=== PATIENT | male | born 1970 | race American Indian/Alaskan Native ===

== ENCOUNTER 2017-02-11 13:04 | Inpatient (IN) | payer OTHER, MEDICAID ==
[2017-02-11 13:04] VITALS: BMI 12.6
[2017-02-11] MEDS ORDERED: Sodium Chloride 0.9% 1,000 ML IV ONE (13:42)
--- NOTE | 2017-02-11 14:20 | RAD ---
PROCEDURE: CHEST RADIOGRAPH, 1 VIEW HISTORY: Fever COMPARISON: 07/12/2016. FINDINGS: LUNGS: The lungs are well inflated and clear. There are chronic changes in both lower lobes. PLEURA: No pneumothorax or pleural fluid seen. CARDIOVASCULAR: Normal. OSSEOUS STRUCTURES: No significant abnormalities. VISUALIZED UPPER ABDOMEN: Normal. OTHER FINDINGS: None. IMPRESSION: No active pulmonary disease.
[2017-02-11 14:23] LABS: BASO # 0.1 K/uL (0.0-0.2); EOS # 0.1 K/uL (0.0-0.7); EOS % 0.8 % (0.0-4.0); HEMOGLOBIN 11.4 g/dL (12.0-18.0); LYMPH # 1.5 K/uL (1.0-4.3); LYMPH % 11.8 % (20.0-40.0); MEAN CELL VOLUME 87.4 fL (80.0-94.0); MEAN PLATELET VOLUME 7.6 fL (7.2-11.7); MONO # 0.7 K/uL (0.0-0.8); MONO % 5.4 % (0.0-10.0); NEUT # 10.1 K/uL (1.8-7.0); RBC 4.09 Mil/uL (4.40-5.90); RED CELL DISTRIBUTION WIDTH 15.2 % (11.5-14.5); WHITE BLOOD COUNT 12.5 K/uL (4.8-10.8)
[2017-02-11 14:32] LABS: VENOUS BLOOD GAS BASE EXCESS 0.6 mmol/L (0.0-2.0); VENOUS BLOOD GAS PCO2 47 mmHg (40-60); VENOUS BLOOD GAS PO2 17 mm/Hg (30-55); VENOUS BLOOD PH 7.36 (7.32-7.43)
[2017-02-11 14:34] LABS: ALBUMIN 3.7 g/dL (3.5-5.0)
[2017-02-11 14:37] LABS: ALB/GLOB RATIO 0.7 (1.0-2.1)
[2017-02-11 14:38] LABS: CALCIUM 9.8 mg/dl (8.6-10.4)
[2017-02-11 15:41] LABS: URINE BACTERIA OCC (<OCC); URINE BILIRUBIN NEGATIVE (NEGATIVE); URINE BLOOD 2+ (NEGATIVE); URINE CLARITY Turbid (Clear); URINE COLOR Yellow (YELLOW); URINE GLUCOSE (UA) NORMAL (Normal); URINE LEUKOCYTE ESTERASE 3+ Leu/uL (Negative); URINE NITRATE NEGATIVE (NEGATIVE); URINE PROTEIN 1+ mg/dL (NEGATIVE); URINE UROBILINOGEN NORMAL mg/dL (0.2-1.0); WBC CLUMPS FEW /hpf
[2017-02-11] MEDS ORDERED: cefTRIAXone IV 1 gm in Dextros 50 ML IV STA (15:44)
[2017-02-11] MEDS ORDERED: Piperacillin/Tazobact 3.375 gm 100 ML IV STA (15:53)
--- NOTE | 2017-02-11 15:59 | C.PDOC ---
History Of Present Illness 46-year-old male sent to the emergency department from subacute rehab with complaints of hematuria since yesterdat, described as "maroon colored urine." He denies fever, chest pain, shortness of breath, abdominal pain, flank pain, dysuria. Time Seen by Provider: 02/11/17 13:31 Chief Complaint (Nursing): Male Genitourinary History Per: Patient History/Exam Limitations: no limitations Onset/Duration Of Symptoms: Days Current Symptoms Are (Timing): Still Present Severity: Moderate Past Medical History Reviewed: Historical Data, Nursing Documentation, Vital Signs Vital Signs: Last Vital Signs Temp 97.3 F L 02/17/17 00:00 Pulse 98 H 02/17/17 00:00 Resp 20 02/17/17 00:00 BP 115/81 02/17/17 00:00 Pulse Ox 100 02/17/17 00:00 - Medical History PMH: Diabetes, Fractures (left shoulder), HTN, Hypercholesterolemia, Seizures - [facility] Procedures EXCISION OF DUODENUM, ENDO, DIAGN (07/02/16) EXCISION OF ESOPHAGUS, ENDO, DIAGN (07/02/16) EXCISION OF STOMACH, ENDO, DIAGN (07/02/16) INSPECTION OF BLADDER, ENDO (12/12/16) INTRODUCTION OF SERUM/TOX/VACCINE INTO MUSCLE, PERC APPROACH (07/14/15) Family History: States: Diabetes - Social History Hx Alcohol Use: No Hx Substance Use: No - Immunization History Hx Influenza Vaccination: No Hx Pneumococcal Vaccination: No Review Of Systems Except As Marked, All Systems Reviewed And Found Negative. Constitutional: Negative for: Fever, Chills Cardiovascular: Negative for: Chest Pain Respiratory: Negative for: Shortness of Breath Gastrointestinal: Negative for: Nausea, Vomiting, Diarrhea Genitourinary: Positive for: Hematuria. Negative for: Dysuria Physical Exam - Physical Exam Appears: Well, Non-toxic, No Acute Distress Skin: Normal Color, Warm, Dry, No Rash Eye(s): bilateral: Normal Inspection Oral Mucosa: Moist Neck: Normal, Normal ROM Cardiovascular: Rhythm Regular Respiratory: Normal Breath Sounds, No Rales, No Rhonchi, No Wheezing Gastrointestinal/Abdominal: Normal Exam, Bowel Sounds, Soft, No Tenderness Back: Normal Inspection, No CVA Tenderness Neurological/Psych: Oriented x3 ED Course And Treatment - Laboratory Results Result Diagrams: 02/15/17 07:31 02/15/17 07:31 O2 Sat by Pulse Oximetry: 98 (RA) Pulse Ox Interpretation: Normal Progress Note: Blood work, UA, ordered and reviewed. Patient has fever, PO tylenol given. IV Zosyn given for UTI/pyelonephritis. Patient refused bardales catheter insertion. - Physician Consult Information Physician Contacted: Jerad Orellana Outcome Of Conversation: Discussed patient with Dr. Orellana. States an outpatient US shows B/L hydronephrosis without evidence of kidney stone. Prior CT scan abd/pelvis done 12/2016 also shows thickened bladder wall + hydro without evidence of kidney stone. Dr. Orellana requests insertion of bardales (due to worsening renal function, possible obstruction) and [facility] urology consult. Disposition - Disposition Disposition: HOSPITALIZED Disposition Time: 15:12 Condition: STABLE - Clinical Impression Clinical Impression: Pyelonephritis, Acute renal failure (ARF), Leukocytosis, Fever - PA / ROCK BREAKER / Resident Statement MD/DO has reviewed & agrees with the documentation as recorded. - Scribe Statement The provider has reviewed the documentation as recorded by the Scribe (Jey Wright) All medical record entries made by the Scribe were at my direction and personally dictated by me. I have reviewed the chart and agree that the record accurately reflects my personal performance of the history, physical exam, medical decision making, and the department course for this patient. I have also personally directed, reviewed, and agree with the discharge instructions and disposition. Decision To Admit - Pt Status Changed To: Hospital Disposition Of: Inpatient - Admit Certification Admit to Inpatient:: After my assessment, the patient will require hospitalization for at least two midnights. This is because of the severity of symptoms shown, intensity of services needed, and/or the medical risk in this patient being treated as an outpatient. - InPatient: Physician Admission Certification: I certify that this patient requires 2 or more midnights of care for the following reason:: see notes - . Bed Request Type: Regular Admitting Physician: Jerad Orellana Patient Diagnosis: Pyelonephritis, Acute renal failure (ARF), Leukocytosis, Fever
[2017-02-11] MEDS ORDERED: Piperacillin/Tazobact 3.375 gm 100 ML IVPB ONE (16:07)
[2017-02-11] MEDS ORDERED: Sodium Chloride 0.9% 1,000 ML ONE ×2 (16:36→19:00)
[2017-02-11] MEDS ORDERED: Piperacillin/Tazobact 3.375 GM in Sodium Chloride 100 ML IVPB SCH (18:15)
[2017-02-11] MEDS: Sodium Chloride 0.9% 1,000 ML IV SCH (18:54)
[2017-02-11] MEDS ORDERED: Insulin Detemir 100 units/ml Vial (Levemir) SC ONE (21:50)
[2017-02-11] MEDS: Insulin Detemir 100 units/ml Vial (Levemir) SC SCH (21:57)
[2017-02-11] MEDS: Sucralfate 1 gm/10 ml Oral Susp UD PO SCH (22:28)
--- NOTE | 2017-02-11 23:45 | CP.PCM.HP ---
History of Present Illness - History of Present Illness History of Present Illness: 46-year-old male, presents to the emergency department with complaints of hematuiria, described as "maroon urine." Patient sent from rehab. Denies fever today, chest pain, shortness of breath, abdominal pain, flank pain, dysuria, or any other associated symptoms. No other complaints at this time.Pt has b/l hydronephrosis without kidney stones, urology consulted Present on Admission - Present on Admission Any Indicators Present on Admission: Yes Review of Systems - Review of Systems Systems not reviewed;Unavailable: Acuity of Condition - Constitutional Constitutional: Fatigue, Lethargy. absent: As Per HPI, Anorexia, Chills, Daytime Sleepiness, Excessive Sweating, Fever, Frequent Falls, Headache, Increased Appetite, Malaise, Night Sweats, Snoring, Sleep Apnea, Weight Gain, Weight Loss, Weakness, Other - EENT Eyes: absent: As Per HPI, Blind Spots, Blurred Vision, Change in Vision, Decreased Night Vision, Diplopia, Discharge, Dry Eye, Exophthalmos, Floaters, Irritation, Itchy Eyes, Loss of Peripheral Vision, Pain, Photophobia, Requires Corrective Lenses, Sees Flashes, Spots in Vision, Tunnel Vision, Other Visual Disturbances, Loss of Vision, Other Ears: Decreased Hearing Nose/Mouth/Throat: absent: As Per HPI, Epistaxis, Nasal Congestion, Nasal Discharge, Nasal Obstruction, Nasal Trauma, Nose Pain, Post Nasal Drip, Sinus Pain, Sinus Pressure, Bleeding Gums, Change in Voice, Dental Pain, Dry Mouth, Dysphagia, Halitosis, Hoarsness, Lip Swelling, Mouth Lesions, Mouth Pain, Odynophagia, Sore Throat, Throat Swelling, Tongue Swelling, Facial Pain, Neck Pain, Neck Mass, Other - Cardiovascular Cardiovascular: absent: As Per HPI, Acrocyanosis, Chest Pain, Chest Pain at Rest , Chest Pain with Activity, Claudication, Diaphoresis, Dyspnea, Dyspnea on Exertion, Edema, Irregular Heart Rhythm, Pain Radiating to Arm/Neck/Jaw, Leg Edema, Leg Ulcers, Lightheadedness, Orthopnea, Palpitations, Paroxysmal Nocturnal Dyspnea, Pedal Edema, Radiating Pain, Rapid Heart Rate, Slow Heart Rate, Syncope, Other - Gastrointestinal Gastrointestinal: absent: As Per HPI, Abdominal Pain, Belching, Bloating, Change in Bowel Habits, Change in Stool Character, Coffee Ground Emesis, Constipation, Cramping, Diarrhea, Dyspepsia, Dysphagia, Early Satiety, Excessive Flatus, Fecal Incontinence, Heartburn, Hematemesis, Hematochezia, Loose Stools, Melena, Nausea, Odynophagia, Temesmus, Vomiting, Other - Genitourinary Genitourinary: Change in Urinary Stream, Difficulty Urinating, Flank Pain, Hematuria, Nocturia, Voiding Freq/Small Amts Past Patient History - Infectious Disease Hx of Infectious Diseases: None - Past Medical History & Family History Past Medical History?: Yes - Past Social History Smoking Status: Never Smoked - CARDIAC Hx Hypercholesterolemia: Yes Hx Hypertension: Yes - PULMONARY Hx Respiratory Disorders: No - NEUROLOGICAL Hx Seizures: Yes - HEENT Hx HEENT Problems: No - RENAL Hx Chronic Kidney Disease: No - ENDOCRINE/METABOLIC Hx Diabetes Mellitus Type 1: Yes - HEMATOLOGICAL/ONCOLOGICAL Hx Human Immunodeficiency Virus (HIV): No - INTEGUMENTARY Hx Dermatological Problems: No - MUSCULOSKELETAL/RHEUMATOLOGICAL Hx Fractures: Yes (left shoulder) - GASTROINTESTINAL Hx Clostridium Difficile: Yes Hx Diarrhea: Yes - GENITOURINARY/GYNECOLOGICAL Hx Genitourinary Disorders: No - PSYCHIATRIC Hx Substance Use: No - SURGICAL HISTORY Hx Surgeries: No - ANESTHESIA Hx Anesthesia: No Meds Allergies/Adverse Reactions: Allergies Allergy/AdvReac Type Severity Reaction Status Date / Time No Known Allergies Allergy Verified 01/16/17 18:01 Physical Exam - Constitutional Appears: No Acute Distress - Head Exam Head Exam: ATRAUMATIC, NORMAL INSPECTION, NORMOCEPHALIC - Eye Exam Eye Exam: EOMI, Normal appearance, PERRL Pupil Exam: NORMAL ACCOMODATION, PERRL - Respiratory Exam Respiratory Exam: Clear to Auscultation Bilateral, NORMAL BREATHING PATTERN - Cardiovascular Exam Cardiovascular Exam: REGULAR RHYTHM - GI/Abdominal Exam GI & Abdominal Exam: Normal Bowel Sounds, Soft. absent: Tenderness Results - Vital Signs Recent Vital Signs: Last Vital Signs Temp 97.5 F L 02/11/17 22:51 Pulse 104 H 02/11/17 22:51 Resp 20 02/11/17 22:51 BP 118/80 02/11/17 22:51 Pulse Ox 96 02/11/17 22:51 - Labs Result Diagrams: 02/12/17 11:41 02/12/17 11:41 Labs: Laboratory Results - last 24 hr 02/11/17 21:37 POC Glucose (mg/dL) 370 H Assessment & Plan (1) Hydronephrosis determined by ultrasound Status: Acute (2) Dehydration Status: Acute (3) Diabetes Status: Chronic (4) Pyelonephritis Status: Acute (5) Obstructive uropathy Assessment and Plan: pt refuses foleys Status: Acute
[2017-02-12] MEDS: Sodium Chloride 0.9% 1,000 ML IV SCH ×3 (01:25→16:38)
[2017-02-12] MEDS: Piperacillin/Tazobact 3.375 GM in Sodium Chloride 100 ML IVPB SCH ×3 (01:25→17:09)
--- NOTE | 2017-02-12 08:16 | PCM.URO ---
Urology Progress Note - Objective Lab Results Last 24 Hours: Laboratory Results - last 24 hr 02/11/17 02/12/17 21:37 06:20 POC Glucose (mg/dL) 370 H 90 Intake & Output: Intake & Output 02/11/17 02/12/17 02/12/17 18:59 06:59 18:59 Intake Total 100 100 Output Total 400 Balance -300 100 Intake: Intake, IV Amount 100 Right Forearm 100 Oral 100 Output: Urine 400 Vital Signs: Vital Signs - 24 hr 02/11/17 02/11/17 02/11/17 16:33 16:47 20:02 Temperature 99.6 F 97.6 F Pulse Rate 110 H 99 H Respiratory 16 16 Rate Blood Pressure 121/86 113/74 O2 Sat by Pulse 100 98 99 Oximetry 02/11/17 02/11/17 02/12/17 22:51 23:10 08:05 Temperature 97.5 F L 98.0 F 98.2 F Pulse Rate 104 H 122 H 92 H Respiratory 20 20 20 Rate Blood Pressure 118/80 133/83 131/89 O2 Sat by Pulse 96 98 100 Oximetry
[2017-02-12] MEDS ORDERED: INSULIN LISPRO PROTAMINE SQ SCH (10:00)
[2017-02-12] MEDS ORDERED: INSULIN LISPRO SQ SCH (10:00)
[2017-02-12] MEDS: (Novolog Mix 70/30) Insulin Aspart/Insulin Aspar 100 units/ml SC SCH ×2 (10:51→17:59)
[2017-02-12] MEDS: Sucralfate 1 gm/10 ml Oral Susp UD PO SCH ×4 (10:51→22:16)
[2017-02-12] MEDS: Enoxaparin 30 mg Syringe SC SCH (10:51)
[2017-02-12 11:44] LABS: BASO # 0.1 K/uL (0.0-0.2); BASO % 0.8 % (0.0-2.0); EOS # 0.2 K/uL (0.0-0.7); EOS % 1.8 % (0.0-4.0); HEMOGLOBIN 10.3 g/dL (12.0-18.0); LYMPH # 1.2 K/uL (1.0-4.3); LYMPH % 11.9 % (20.0-40.0); MEAN CELL VOLUME 87.4 fL (80.0-94.0); MEAN CORPUSCULAR HEMOGLOBIN 28.2 pg (27.0-31.0); MEAN CORPUSCULAR HGB CONC 32.3 g/dL (33.0-37.0); MEAN PLATELET VOLUME 7.5 fL (7.2-11.7); MONO # 0.5 K/uL (0.0-0.8); MONO % 5.4 % (0.0-10.0); NEUT # 8.1 K/uL (1.8-7.0); NEUT % 80.1 % (50.0-75.0); RBC 3.66 Mil/uL (4.40-5.90); RED CELL DISTRIBUTION WIDTH 14.8 % (11.5-14.5); WHITE BLOOD COUNT 10.2 K/uL (4.8-10.8)
[2017-02-12 11:55] LABS: GFR AFRICAN-AMERICAN > 60; GFR NON-AFRICAN AMERICAN 51
[2017-02-12 11:56] LABS: BLOOD UREA NITROGEN 23 mg/dL (9-20); CALCIUM 9.5 mg/dl (8.6-10.4)
--- NOTE | 2017-02-12 16:13 | CT ---
PROCEDURE: CT abdomen pelvis dated 02/12/2017 HISTORY: stones COMPARISON: Comparison made with CT scan abdomen and pelvis dated 07/04/2016. TECHNIQUE: Contiguous axial images of the abdomen and pelvis pelvis without oral or intravenous contrast. . Coronal and Sagittal reformats generated. Radiation dose: Total exam DLP = 253.77 mGy-cm. This CT exam was performed using one or more of the following dose reduction techniques: Automated exposure control, adjustment of the mA and/or kV according to patient size, and/or use of iterative reconstruction technique. FINDINGS: LOWER THORAX: Previously noted large area of atelectasis/ consolidation left lung base resolved however there are scattered areas of somewhat in tree-in-bud opacities in both lung bases associated with linear atelectasis/ scarring. LIVER: Liver exhibits normal size and attenuation pattern without mass collection or calcification. GALLBLADDER AND BILE DUCTS: Gallbladder appears to be incompletely distended likely due to nonfasting state and therefore cannot be adequately evaluated no gross intraluminal gallbladder calculi PANCREAS: Evaluation of the pancreas is somewhat limited due to the lack of oral and intravenous contrast material. No gross pancreatic mass collection or calcification. No significant pancreatic ductal dilatation. SPLEEN: Unremarkable. No splenomegaly. ADRENALS: Mildly enlarged left adrenal gland. KIDNEYS AND URETERS: There is moderate bilateral hydronephrosis with no evidence of nephrolithiasis. BLADDER: Urinary bladder is distended though exhibits moderate to fairly significant thick-walled appearance somewhat asymmetrically more prominent along the inferior borders. Findings could be secondary to exuberant muscular hypertrophy secondary to a chronic bladder outlet obstruction secondary to enlarged prostate gland however cystitis or other intrinsic/ invasive wall lesion cannot be excluded. REPRODUCTIVE: As mentioned above, the prostate gland is enlarged measuring approximately 5 cm in transverse dimension. This is likely due to BPH however correlation with PSA recommended to exclude prostate carcinoma. APPENDIX: Appendix is not seen with certainty however no obvious inflammatory changes right lower quadrant of the abdomen. BOWEL: In the evaluation of the bowel is limited due to the lack of oral contrast material. There appears be tiny hiatal hernia. Stomach is distended with food debris and air. Visualized loops of small bowel exhibit normal contour and caliber. No evidence of acute mechanical small bowel obstruction. . PERITONEUM: Unremarkable. No fluid collection. No free air. Small fat containing umbilical hernia. LYMPH NODES: Unremarkable. No enlarged lymph nodes. VASCULATURE: Unremarkable. No aortic aneurysm. BONES: No acute fractures. Minimal chronic anterior stature loss of the T12 segment unchanged. OTHER FINDINGS: None. IMPRESSION: Moderate bilateral hydronephrosis of likely due to on chronic bladder outlet obstruction secondary to enlarged prostate gland. The urinary bladder wall is relatively uniformly thickened with the exception along the floor of though this is likely due to some volume averaging of the prostate gland. On findings likely secondary to muscular hypertrophy however cystitis or other intrinsic/invasive wall lesion not excluded. Enlarged prostate gland which is somewhat heterogeneous in appearance. This is likely due to BPH however correlation with PSA recommended. See above discussion for additional findings and details.
--- NOTE | 2017-02-12 21:49 | CP.PCM.PN ---
Subjective - Date & Time of Evaluation Date of Evaluation: 02/12/17 Time of Evaluation: 22:00 - Subjective Subjective: Pt seen and examined, refuses foleys insertion, also seen by urology, s/p avute pyelonepritis and obstructive uropathy due to b/l hydronephrosis, on antibiotics Objective - Vital Signs/Intake and Output Vital Signs (last 24 hours): Temp Pulse Resp BP Pulse Ox 99.8 F H 90 20 158/99 H 100 02/12/17 16:01 02/12/17 16:01 02/12/17 16:01 02/12/17 16:01 02/12/17 16:01 Intake and Output: 02/12/17 02/13/17 18:59 06:59 Intake Total 340 Output Total 1250 Balance -910 - Medications Medications: Current Medications Acetaminophen (Tylenol 325mg Tab) 650 mg PO Q6 PRN PRN Reason: Fever >100.4 F Bisacodyl (Dulcolax) 10 mg [place] DAILY PRN PRN Reason: Constipation Enoxaparin Sodium (Lovenox) 30 mg SC DAILY [facility] Last Admin: 02/12/17 10:51 Dose: 30 mg Ferrous Sulfate (Feosol) 325 mg PO DAILY [facility] Last Admin: 02/12/17 10:51 Dose: 325 mg Fluconazole (Diflucan) 100 mg PO DAILY [facility] Last Admin: 02/12/17 10:51 Dose: 100 mg Sodium Chloride (Sodium Chloride 0.9%) 1,000 mls @ 100 mls/hr IV .Q10H [facility] Last Admin: 02/12/17 16:38 Dose: 100 mls/hr Piperacillin Sod/Tazobactam (Sod 3.375 gm/ Sodium Chloride) 100 mls @ 200 mls/ hr IVPB Q8H [facility] Last Admin: 02/12/17 17:09 Dose: 200 mls/hr Insulin Aspart (Novolog Mix 70/30 (70/30 Units/Ml)) 20 units SC BID [facility] Last Admin: 02/12/17 17:59 Dose: 20 units Insulin Detemir (Levemir) 30 unit SC HS [facility] Last Admin: 02/11/17 21:57 Dose: 30 unit Loperamide HCl (Imodium) 2 mg PO Q6 [facility] Last Admin: 02/12/17 17:57 Dose: 2 mg Midodrine (Proamatine) 2.5 mg PO BID [facility] Last Admin: 02/12/17 17:57 Dose: 2.5 mg Rosuvastatin Calcium (Crestor) 5 mg PO HS [facility] Last Admin: 02/11/17 22:28 Dose: 5 mg Sucralfate (Carafate Oral Susp) 1 gm PO QID [facility] Last Admin: 02/12/17 17:57 Dose: 1 gm - Labs Labs: 02/12/17 11:41 02/12/17 11:41 - Constitutional Appears: No Acute Distress - Head Exam Head Exam: ATRAUMATIC, NORMAL INSPECTION, NORMOCEPHALIC - Eye Exam Eye Exam: EOMI, Normal appearance, PERRL Pupil Exam: NORMAL ACCOMODATION, PERRL - ENT Exam ENT Exam: Mucous Membranes Moist, Normal Exam - Respiratory Exam Respiratory Exam: Clear to Ausculation Bilateral, NORMAL BREATHING PATTERN - Cardiovascular Exam Cardiovascular Exam: REGULAR RHYTHM, +S1, +S2. absent: Murmur - GI/Abdominal Exam GI & Abdominal Exam: Soft, Normal Bowel Sounds. absent: Tenderness - Neurological Exam Neurological Exam: Alert, Awake, CN II-XII Intact, Normal Gait, Oriented x3 Assessment and Plan (1) Hydronephrosis determined by ultrasound Status: Acute (2) Obstructive uropathy Status: Acute (3) Pyelonephritis Status: Acute (4) Dehydration Status: Acute (5) Diabetes Status: Chronic
[2017-02-12] MEDS: Insulin Detemir 100 units/ml Vial (Levemir) SC SCH (22:25)
[2017-02-13] MEDS: Sodium Chloride 0.9% 1,000 ML IV SCH ×4 (00:48→19:24)
[2017-02-13] MEDS: Piperacillin/Tazobact 3.375 GM in Sodium Chloride 100 ML IVPB SCH ×3 (01:05→16:44)
[2017-02-13] MEDS: (Novolog Mix 70/30) Insulin Aspart/Insulin Aspar 100 units/ml SC SCH ×2 (09:41→18:58)
[2017-02-13] MEDS: Sucralfate 1 gm/10 ml Oral Susp UD PO SCH ×4 (09:41→22:32)
[2017-02-13] MEDS: Enoxaparin 30 mg Syringe SC SCH (09:41)
--- NOTE | 2017-02-13 13:06 | PCM.URO ---
Urology Progress Note - General General: No Complaints, Tolerating Diet - Subjective Abdominal Pain: No Flank Pain: No Nausea: No Vomiting: No Dysuria: No Hematuria: No Good Stream: No (fair stream) Stone Passed: No Dsypnea: No Chest Pain: No Fever & Chills: No Other: pt reports feeling better overall. hx of retention - Objective Lab Studies: Reviewed Lab Results Last 24 Hours: Laboratory Results - last 24 hr 02/12/17 02/12/17 02/13/17 16:59 21:22 06:18 POC Glucose (mg/dL) 146 H 151 H 370 H 02/13/17 11:44 POC Glucose (mg/dL) 162 H Intake & Output: Intake & Output 02/12/17 02/13/17 02/13/17 18:59 06:59 18:59 Intake Total 340 240 Output Total 1250 850 Balance -910 -610 Intake: Intake, IV Amount 100 Right Forearm 100 Oral 240 240 Output: Urine 1250 850 Condom 1250 850 Other: # Bowel Movements 1 Vital Signs: Vital Signs - 24 hr 02/12/17 02/12/17 02/12/17 16:01 22:00 23:32 Temperature 99.8 F H 98.2 F Pulse Rate 90 105 H 94 H Respiratory 20 20 Rate Blood Pressure 158/99 H 131/89 121/84 O2 Sat by Pulse 100 100 Oximetry 02/13/17 08:16 Temperature 98.0 F Pulse Rate 94 H Respiratory 20 Rate Blood Pressure 121/84 O2 Sat by Pulse 100 Oximetry Imaging Studies: Reviewed - Physical Exam Abdominal Exam: Soft, Non-Tender, Non-Distended Back: No CVA Tenderness Genitalia: Without Inflammation - Plan Additional Information: IMP: Urinary retention . DDX: obstruction and /or detrusor hypofunction. Bilat hydronephrosis. IDDM. REC/PLAN: monitor output. monitor renalfunction. psa. culture. Poss cystometrogram, cystoscopy , cystogram t/f. bladder scan to check residual - Date & Time of Note Date: 02/13/17 Time: 13:06
[2017-02-13] MEDS: Insulin Detemir 100 units/ml Vial (Levemir) SC SCH (21:47)
[2017-02-13] MEDS: (Novolog) Insulin Aspart, Recombinant 100 u/ml 10 ml vial SC SCH (21:48)
--- NOTE | 2017-02-13 22:40 | CP.PCM.PN ---
Subjective - Date & Time of Evaluation Date of Evaluation: 02/13/17 Time of Evaluation: 20:15 - Subjective Subjective: Pt is for cystoscopy tommorow, is weak and lethargic Objective - Vital Signs/Intake and Output Vital Signs (last 24 hours): Temp Pulse Resp BP Pulse Ox 98.0 F 94 H 20 149/105 H 100 02/13/17 17:33 02/13/17 17:33 02/13/17 17:33 02/13/17 17:33 02/13/17 17:33 Intake and Output: 02/13/17 02/14/17 18:59 06:59 Intake Total 1280 Output Total 900 600 Balance 380 -600 - Medications Medications: Current Medications Acetaminophen (Tylenol 325mg Tab) 650 mg PO Q6 PRN PRN Reason: Fever >100.4 F Bisacodyl (Dulcolax) 10 mg [place] DAILY PRN PRN Reason: Constipation Enoxaparin Sodium (Lovenox) 30 mg SC DAILY [facility] Last Admin: 02/13/17 09:41 Dose: 30 mg Ferrous Sulfate (Feosol) 325 mg PO DAILY [facility] Last Admin: 02/13/17 09:41 Dose: 325 mg Fluconazole (Diflucan) 100 mg PO DAILY [facility] Last Admin: 02/13/17 09:41 Dose: 100 mg Sodium Chloride (Sodium Chloride 0.9%) 1,000 mls @ 100 mls/hr IV .Q10H [facility] Last Admin: 02/13/17 19:24 Dose: Not Given Piperacillin Sod/Tazobactam (Sod 3.375 gm/ Sodium Chloride) 100 mls @ 200 mls/ hr IVPB Q8H [facility] Last Admin: 02/13/17 16:44 Dose: 200 mls/hr Insulin Aspart (Novolog Mix 70/30 (70/30 Units/Ml)) 20 units SC BID [facility] Last Admin: 02/13/17 18:58 Dose: 20 units Insulin Aspart (Novolog) 0 unit SC ACHS [facility] PRN Reason: Protocol Last Admin: 02/13/17 21:48 Dose: 3 unit Insulin Detemir (Levemir) 30 unit SC HS [facility] Last Admin: 02/13/17 21:47 Dose: 30 unit Loperamide HCl (Imodium) 2 mg PO Q6 PRN PRN Reason: Diarrhea Last Admin: 02/13/17 18:59 Dose: 2 mg Midodrine (Proamatine) 2.5 mg PO BID [facility] Last Admin: 02/13/17 19:01 Dose: Not Given Rosuvastatin Calcium (Crestor) 5 mg PO HS [facility] Last Admin: 02/13/17 22:32 Dose: 5 mg Sucralfate (Carafate Oral Susp) 1 gm PO QID [facility] Last Admin: 02/13/17 22:32 Dose: 1 gm - Labs Labs: 02/12/17 11:41 02/12/17 11:41 - Constitutional Appears: No Acute Distress - Head Exam Head Exam: ATRAUMATIC, NORMAL INSPECTION, NORMOCEPHALIC - Eye Exam Eye Exam: EOMI, Normal appearance, PERRL Pupil Exam: NORMAL ACCOMODATION, PERRL - Respiratory Exam Respiratory Exam: Clear to Ausculation Bilateral, NORMAL BREATHING PATTERN - Cardiovascular Exam Cardiovascular Exam: REGULAR RHYTHM, +S1, +S2. absent: Murmur - GI/Abdominal Exam GI & Abdominal Exam: Soft, Normal Bowel Sounds. absent: Tenderness - Neurological Exam Neurological Exam: Alert, Awake, Oriented x3 - Psychiatric Exam Psychiatric exam: Normal Affect, Normal Mood Assessment and Plan (1) Hydronephrosis determined by ultrasound Status: Acute (2) Obstructive uropathy Status: Acute (3) Pyelonephritis Status: Acute (4) Dehydration Status: Acute (5) Diabetes Status: Chronic
[2017-02-14] MEDS: Piperacillin/Tazobact 3.375 GM in Sodium Chloride 100 ML IVPB SCH ×3 (00:22→15:44)
[2017-02-14] MEDS: Sodium Chloride 0.9% 1,000 ML IV SCH ×2 (03:54→13:41)
[2017-02-14 04:46] LABS: URINE BACTERIA MOD (<OCC); URINE BILIRUBIN NEGATIVE (NEGATIVE); URINE BLOOD 1+ (NEGATIVE); URINE CLARITY Turbid (Clear); URINE COLOR Amber (YELLOW); URINE GLUCOSE (UA) NORMAL (Normal); URINE LEUKOCYTE ESTERASE 3+ Leu/uL (Negative); URINE NITRATE NEGATIVE (NEGATIVE); URINE PROTEIN 1+ mg/dL (NEGATIVE); URINE UROBILINOGEN NORMAL mg/dL (0.2-1.0); WBC CLUMPS MANY /hpf
[2017-02-14] MEDS: (Novolog) Insulin Aspart, Recombinant 100 u/ml 10 ml vial SC SCH ×4 (08:33→21:47)
[2017-02-14] MEDS: Sucralfate 1 gm/10 ml Oral Susp UD PO SCH ×4 (09:25→21:46)
[2017-02-14] MEDS: (Novolog Mix 70/30) Insulin Aspart/Insulin Aspar 100 units/ml SC SCH ×2 (09:25→17:35)
[2017-02-14] MEDS: Enoxaparin 30 mg Syringe SC SCH (09:25)
--- NOTE | 2017-02-14 13:56 | CP.PCM.PN ---
Subjective - Date & Time of Evaluation Date of Evaluation: 02/14/17 Time of Evaluation: 09:00 - Subjective Subjective: PT SEEN & EXAMINED NAD Objective - Vital Signs/Intake and Output Vital Signs (last 24 hours): Temp Pulse Resp BP Pulse Ox 97.8 F 97 H 20 120/83 100 02/14/17 08:27 02/14/17 08:27 02/14/17 08:27 02/14/17 08:27 02/14/17 08:27 Intake and Output: 02/14/17 02/14/17 06:59 18:59 Intake Total 2320 Output Total 1450 Balance 870 - Medications Medications: Current Medications Acetaminophen (Tylenol 325mg Tab) 650 mg PO Q6 PRN PRN Reason: Fever >100.4 F Bisacodyl (Dulcolax) 10 mg [place] DAILY PRN PRN Reason: Constipation Enoxaparin Sodium (Lovenox) 30 mg SC DAILY [facility] Last Admin: 02/14/17 09:25 Dose: 30 mg Ferrous Sulfate (Feosol) 325 mg PO DAILY [facility] Last Admin: 02/14/17 09:25 Dose: 325 mg Fluconazole (Diflucan) 100 mg PO DAILY [facility] Last Admin: 02/14/17 09:25 Dose: 100 mg Sodium Chloride (Sodium Chloride 0.9%) 1,000 mls @ 100 mls/hr IV .Q10H [facility] Last Admin: 02/14/17 13:41 Dose: 100 mls/hr Piperacillin Sod/Tazobactam (Sod 3.375 gm/ Sodium Chloride) 100 mls @ 200 mls/ hr IVPB Q8H [facility] Last Admin: 02/14/17 08:52 Dose: 200 mls/hr Insulin Aspart (Novolog Mix 70/30 (70/30 Units/Ml)) 20 units SC BID [facility] Last Admin: 02/14/17 09:25 Dose: 20 units Insulin Aspart (Novolog) 0 unit SC ACHS [facility] PRN Reason: Protocol Last Admin: 02/14/17 13:38 Dose: 2 unit Insulin Detemir (Levemir) 30 unit SC HS [facility] Last Admin: 02/13/17 21:47 Dose: 30 unit Loperamide HCl (Imodium) 2 mg PO Q6 PRN PRN Reason: Diarrhea Last Admin: 02/13/17 18:59 Dose: 2 mg Midodrine (Proamatine) 2.5 mg PO BID [facility] Last Admin: 02/14/17 09:25 Dose: 2.5 mg Rosuvastatin Calcium (Crestor) 5 mg PO HS [facility] Last Admin: 02/13/17 22:32 Dose: 5 mg Sucralfate (Carafate Oral Susp) 1 gm PO QID [facility] Last Admin: 02/14/17 13:38 Dose: 1 gm - Labs Labs: 02/12/17 11:41 02/12/17 11:41 Assessment and Plan (1) Hydronephrosis determined by ultrasound Status: Acute (2) Obstructive uropathy Status: Acute (3) Pyelonephritis Status: Acute (4) Dehydration Status: Acute (5) Diabetes Status: Chronic
--- NOTE | 2017-02-14 14:12 | PCM.URO ---
Urology Progress Note - Objective Lab Results Last 24 Hours: Laboratory Results - last 24 hr 02/13/17 02/13/17 02/14/17 17:03 21:18 02:09 POC Glucose (mg/dL) 322 H 375 H 234 H Urine Color Urine Clarity Urine pH Ur Specific [place] Urine Protein Urine Glucose (UA) Urine Ketones Urine Blood Urine Nitrate Urine Bilirubin Urine Urobilinogen Ur Leukocyte Esterase Urine WBC (Auto) Urine RBC (Auto) Urine WBC Clumps (Auto) Urine Bacteria Urine Yeast (Budding) 02/14/17 02/14/17 02/14/17 04:34 06:47 11:31 POC Glucose (mg/dL) 122 H 156 H Urine Color Shantal Urine Clarity Turbid Urine pH 5.0 Ur Specific [place] 1.009 Urine Protein 1+ H Urine Glucose (UA) Normal Urine Ketones Negative Urine Blood 1+ H Urine Nitrate Negative Urine Bilirubin Negative Urine Urobilinogen Normal Ur Leukocyte Esterase 3+ H Urine WBC (Auto) 3274 H Urine RBC (Auto) 41 H Urine WBC Clumps (Auto) Many H Urine Bacteria Mod H Urine Yeast (Budding) Many H Intake & Output: Intake & Output 02/13/17 02/14/17 02/14/17 18:59 06:59 18:59 Intake Total 1280 2320 Output Total 2900 1450 Balance -1620 870 Intake: Intake, IV Amount 800 1600 Right Forearm 800 1600 Oral 480 720 Output: Urine 2900 1450 Condom 2900 1450 Other: # Bowel Movements 0 0 Vital Signs: Vital Signs - 24 hr 02/13/17 02/13/17 02/14/17 17:33 23:05 08:27 Temperature 98.0 F 98.4 F 97.8 F Pulse Rate 94 H 97 H 97 H Respiratory 20 20 20 Rate Blood Pressure 149/105 H 121/84 120/83 O2 Sat by Pulse 100 100 100 Oximetry
--- NOTE | 2017-02-14 17:10 | US ---
PROCEDURE: Ultrasound of the Kidneys HISTORY: hydronephrosis on ct COMPARISON: CT abdomen and pelvis without oral or IV contrast performed 02/12/17 TECHNIQUE: Sonogram of the kidneys. FINDINGS: RIGHT KIDNEY: Measures: 12.0 x 6.1 x 5.8 cm. Moderate hydronephrosis. No obstructing renal calculus identified. LEFT KIDNEY: Measures: 10.2 x 5.6 x 5.6 cm. Moderate hydronephrosis. No obstructing renal calculus identified. OTHER FINDINGS: 1.1 x 0.3 x 1.1 cm probable calculus at the right UV junction. Layering debris is noted within the urinary bladder. Roth catheter within the urinary bladder. Urinary bladder cannot be further assessed on these limited provided views. IMPRESSION: Moderate bilateral hydronephrosis. 1.1 cm probable calculus at the right UV junction. Layering debris within the urinary bladder. Roth catheter.
[2017-02-14] MEDS: Insulin Detemir 100 units/ml Vial (Levemir) SC SCH (21:48)
[2017-02-15] MEDS: Piperacillin/Tazobact 3.375 GM in Sodium Chloride 100 ML IVPB SCH ×3 (00:12→17:16)
[2017-02-15 07:37] LABS: HEMOGLOBIN 10.6 g/dL (12.0-18.0); MEAN CORPUSCULAR HEMOGLOBIN 28.1 pg (27.0-31.0); MEAN CORPUSCULAR HGB CONC 32.3 g/dL (33.0-37.0); MEAN PLATELET VOLUME 7.5 fL (7.2-11.7); RBC 3.76 Mil/uL (4.40-5.90); RED CELL DISTRIBUTION WIDTH 14.5 % (11.5-14.5); WHITE BLOOD COUNT 6.6 K/uL (4.8-10.8)
[2017-02-15 08:15] LABS: ALBUMIN 3.2 g/dL (3.5-5.0)
[2017-02-15 08:18] LABS: ALB/GLOB RATIO 0.7 (1.0-2.1)
[2017-02-15 08:19] LABS: CALCIUM 9.5 mg/dl (8.6-10.4)
[2017-02-15] MEDS: (Novolog) Insulin Aspart, Recombinant 100 u/ml 10 ml vial SC SCH ×4 (08:36→21:59)
[2017-02-15] MEDS: Sucralfate 1 gm/10 ml Oral Susp UD PO SCH ×4 (10:56→21:56)
[2017-02-15] MEDS: (Novolog Mix 70/30) Insulin Aspart/Insulin Aspar 100 units/ml SC SCH ×2 (10:56→17:10)
[2017-02-15] MEDS: Enoxaparin 30 mg Syringe SC SCH (10:57)
--- NOTE | 2017-02-15 13:07 | US ---
PROCEDURE: Ultrasound of the Kidneys HISTORY: hydronephosis COMPARISON: None available. TECHNIQUE: Sonogram of the kidneys. FINDINGS: RIGHT KIDNEY: Measures: 11.9 cm. Normal in size, contour and echogenicity. Mild hydronephrosis. No mass or calculus. LEFT KIDNEY: Measures: 10.3 cm. Normal in size, contour and echogenicity. Minimal hydronephrosis. No mass or calculus. OTHER FINDINGS: Urinary bladder significant for soft tissue density at bladder base, nonmobile. Possible neoplasm. No blood flow demonstrated within this soft tissue density on color Doppler interrogation. Further evaluation advised. There is floating debris within the bladder lumen. The bladder volume is 258 mL. Postvoid volume is 97 mL. Prostate volume is 24 mL IMPRESSION: Mild right and minimal left hydronephrosis. Soft tissue density at bladder base. Possible neoplasm. Further evaluation advised. 97 mL postvoid residual.
[2017-02-15] MEDS: Insulin Detemir 100 units/ml Vial (Levemir) SC SCH (21:57)
[2017-02-16] MEDS: Piperacillin/Tazobact 3.375 GM in Sodium Chloride 100 ML IVPB SCH ×3 (00:52→16:00)
--- NOTE | 2017-02-16 06:51 | CP.PCM.PN ---
Subjective - Date & Time of Evaluation Date of Evaluation: 02/15/17 Time of Evaluation: 19:35 - Subjective Subjective: pt seen & examined, afebrile, appears frail, on antibiotics, also seen by urology s/p cystoscopy Objective - Vital Signs/Intake and Output Vital Signs (last 24 hours): Temp Pulse Resp BP Pulse Ox 98.1 F 94 H 20 119/83 97 02/16/17 00:07 02/16/17 00:07 02/16/17 00:07 02/16/17 00:07 02/16/17 00:07 Intake and Output: 02/15/17 02/16/17 18:59 06:59 Intake Total 340 350 Output Total 400 650 Balance -60 -300 - Medications Medications: Current Medications Acetaminophen (Tylenol 325mg Tab) 650 mg PO Q6 PRN PRN Reason: Fever >100.4 F Bisacodyl (Dulcolax) [address] DAILY PRN PRN Reason: Constipation Enoxaparin Sodium (Lovenox) 30 mg SC DAILY [facility] Last Admin: 02/15/17 10:57 Dose: 30 mg Ferrous Sulfate (Feosol) 325 mg PO DAILY [facility] Last Admin: 02/15/17 10:56 Dose: 325 mg Fluconazole (Diflucan) 100 mg PO DAILY [facility] Last Admin: 02/15/17 10:56 Dose: 100 mg Piperacillin Sod/Tazobactam (Sod 3.375 gm/ Sodium Chloride) 100 mls @ 200 mls/ hr IVPB Q8H [facility] Last Admin: 02/16/17 00:52 Dose: 200 mls/hr Insulin Aspart (Novolog Mix 70/30 (70/30 Units/Ml)) 20 units SC BID [facility] Last Admin: 02/15/17 17:10 Dose: 20 units Insulin Aspart (Novolog) 0 unit SC ACHS [facility] PRN Reason: Protocol Last Admin: 02/15/17 21:59 Dose: Not Given Insulin Detemir (Levemir) 30 unit SC HS [facility] Last Admin: 02/15/17 21:57 Dose: 30 unit Loperamide HCl (Imodium) 2 mg PO Q6 PRN PRN Reason: Diarrhea Last Admin: 02/13/17 18:59 Dose: 2 mg Midodrine (Proamatine) 2.5 mg PO BID [facility] Last Admin: 02/15/17 17:10 Dose: 2.5 mg Rosuvastatin Calcium (Crestor) 5 mg PO HS [facility] Last Admin: 02/15/17 21:56 Dose: 5 mg Sucralfate (Carafate Oral Susp) 1 gm PO QID [facility] Last Admin: 02/15/17 21:56 Dose: 1 gm - Labs Labs: 02/15/17 07:31 02/15/17 07:31 - Constitutional Appears: No Acute Distress - Head Exam Head Exam: ATRAUMATIC, NORMAL INSPECTION, NORMOCEPHALIC - Eye Exam Eye Exam: EOMI, Normal appearance, PERRL Pupil Exam: NORMAL ACCOMODATION, PERRL - Respiratory Exam Respiratory Exam: Clear to Ausculation Bilateral, NORMAL BREATHING PATTERN - GI/Abdominal Exam GI & Abdominal Exam: Soft, Normal Bowel Sounds. absent: Tenderness Assessment and Plan (1) Hydronephrosis determined by ultrasound Status: Acute (2) Obstructive uropathy Status: Acute (3) Pyelonephritis Status: Acute (4) Dehydration Status: Acute (5) Diabetes Status: Chronic
--- NOTE | 2017-02-16 06:53 | CP.PCM.PN ---
Subjective - Date & Time of Evaluation Date of Evaluation: 02/16/17 Time of Evaluation: 21:00 - Subjective Subjective: pt is improving, less short of breath Objective - Vital Signs/Intake and Output Vital Signs (last 24 hours): Temp Pulse Resp BP Pulse Ox 98.1 F 94 H 20 119/83 97 02/16/17 00:07 02/16/17 00:07 02/16/17 00:07 02/16/17 00:07 02/16/17 00:07 Intake and Output: 02/15/17 02/16/17 18:59 06:59 Intake Total 340 350 Output Total 400 650 Balance -60 -300 - Medications Medications: Current Medications Acetaminophen (Tylenol 325mg Tab) 650 mg PO Q6 PRN PRN Reason: Fever >100.4 F Bisacodyl (Dulcolax) 10 mg [place] DAILY PRN PRN Reason: Constipation Enoxaparin Sodium (Lovenox) 30 mg SC DAILY [facility] Last Admin: 02/15/17 10:57 Dose: 30 mg Ferrous Sulfate (Feosol) 325 mg PO DAILY [facility] Last Admin: 02/15/17 10:56 Dose: 325 mg Fluconazole (Diflucan) 100 mg PO DAILY [facility] Last Admin: 02/15/17 10:56 Dose: 100 mg Piperacillin Sod/Tazobactam (Sod 3.375 gm/ Sodium Chloride) 100 mls @ 200 mls/ hr IVPB Q8H [facility] Last Admin: 02/16/17 00:52 Dose: 200 mls/hr Insulin Aspart (Novolog Mix 70/30 (70/30 Units/Ml)) 20 units SC BID [facility] Last Admin: 02/15/17 17:10 Dose: 20 units Insulin Aspart (Novolog) 0 unit SC ACHS [facility] PRN Reason: Protocol Last Admin: 02/15/17 21:59 Dose: Not Given Insulin Detemir (Levemir) 30 unit SC HS [facility] Last Admin: 02/15/17 21:57 Dose: 30 unit Loperamide HCl (Imodium) 2 mg PO Q6 PRN PRN Reason: Diarrhea Last Admin: 02/13/17 18:59 Dose: 2 mg Midodrine (Proamatine) 2.5 mg PO BID [facility] Last Admin: 02/15/17 17:10 Dose: 2.5 mg Rosuvastatin Calcium (Crestor) 5 mg PO [facility] Last Admin: 02/15/17 21:56 Dose: 5 mg Sucralfate (Carafate Oral Susp) 1 gm PO QID [facility] Last Admin: 02/15/17 21:56 Dose: 1 gm - Labs Labs: 02/15/17 07:31 02/15/17 07:31 Assessment and Plan (1) Hydronephrosis determined by ultrasound Status: Acute (2) Obstructive uropathy Status: Acute (3) Pyelonephritis Status: Acute (4) Dehydration Status: Acute (5) Diabetes Status: Chronic
[2017-02-16] MEDS: (Novolog) Insulin Aspart, Recombinant 100 u/ml 10 ml vial SC SCH ×4 (07:30→21:33)
[2017-02-16] MEDS: Sucralfate 1 gm/10 ml Oral Susp UD PO SCH ×4 (10:09→21:27)
[2017-02-16] MEDS: (Novolog Mix 70/30) Insulin Aspart/Insulin Aspar 100 units/ml SC SCH ×2 (10:10→18:01)
[2017-02-16] MEDS: Enoxaparin 30 mg Syringe SC SCH (10:26)
--- NOTE | 2017-02-16 19:25 | CARD ---
APPROVED REPORT EKG Measurement Heart [id number] <Conclusion> Sinus tachycardia Otherwise normal ECG
[2017-02-16] MEDS: Insulin Detemir 100 units/ml Vial (Levemir) SC SCH (21:31)
[2017-02-17] MEDS: Piperacillin/Tazobact 3.375 GM in Sodium Chloride 100 ML IVPB SCH ×4 (00:03→23:51)
[2017-02-17] MEDS: (Novolog) Insulin Aspart, Recombinant 100 u/ml 10 ml vial SC SCH ×4 (08:17→21:55)
[2017-02-17 08:40] LABS: BASO # 0.1 K/uL (0.0-0.2); BASO % 1.1 % (0.0-2.0); EOS # 0.5 K/uL (0.0-0.7); EOS % 6.4 % (0.0-4.0); HEMOGLOBIN 11.2 g/dL (12.0-18.0); LYMPH # 1.7 K/uL (1.0-4.3); LYMPH % 22.9 % (20.0-40.0); MEAN CELL VOLUME 86.8 fL (80.0-94.0); MEAN CORPUSCULAR HEMOGLOBIN 28.7 pg (27.0-31.0); MEAN CORPUSCULAR HGB CONC 33.1 g/dL (33.0-37.0); MEAN PLATELET VOLUME 7.7 fL (7.2-11.7); MONO # 0.4 K/uL (0.0-0.8); MONO % 5.7 % (0.0-10.0); NEUT # 4.8 K/uL (1.8-7.0); NEUT % 63.9 % (50.0-75.0); RBC 3.9 Mil/uL (4.40-5.90); RED CELL DISTRIBUTION WIDTH 14.8 % (11.5-14.5); WHITE BLOOD COUNT 7.5 K/uL (4.8-10.8)
[2017-02-17 08:41] LABS: INR 1.1; PROTHROMBIN TIME 12.9 SECONDS (9.7-12.2)
[2017-02-17 08:56] LABS: CALCIUM 9.7 mg/dl (8.6-10.4)
[2017-02-17] MEDS: Enoxaparin 30 mg Syringe SC SCH (10:07)
[2017-02-17] MEDS: (Novolog Mix 70/30) Insulin Aspart/Insulin Aspar 100 units/ml SC SCH ×2 (10:08→17:54)
[2017-02-17] MEDS: Sucralfate 1 gm/10 ml Oral Susp UD PO SCH ×3 (10:34→21:54)
[2017-02-17] MEDS: Insulin Detemir 100 units/ml Vial (Levemir) SC SCH (21:55)
--- NOTE | 2017-02-17 23:28 | CP.PCM.PN ---
Subjective - Date & Time of Evaluation Date of Evaluation: 02/17/17 Time of Evaluation: 20:00 - Subjective Subjective: pt seen & examined Objective - Vital Signs/Intake and Output Vital Signs (last 24 hours): Temp Pulse Resp BP Pulse Ox 98.1 F 99 H 20 119/81 97 02/17/17 16:00 02/17/17 20:39 02/17/17 20:39 02/17/17 20:39 02/17/17 20:39 Intake and Output: 02/17/17 02/18/17 18:59 06:59 Intake Total 350 Balance 350 - Medications Medications: Current Medications Acetaminophen (Tylenol 325mg Tab) 650 mg PO Q6 PRN PRN Reason: Fever >100.4 F Bisacodyl (Dulcolax) 10 mg [place] DAILY PRN PRN Reason: Constipation Enoxaparin Sodium (Lovenox) 30 mg SC DAILY [facility] Last Admin: 02/17/17 10:07 Dose: 30 mg Ferrous Sulfate (Feosol) 325 mg PO DAILY [facility] Last Admin: 02/17/17 10:08 Dose: 325 mg Fluconazole (Diflucan) 100 mg PO DAILY [facility] Last Admin: 02/17/17 10:07 Dose: 100 mg Piperacillin Sod/Tazobactam (Sod 3.375 gm/ Sodium Chloride) 100 mls @ 200 mls/ hr IVPB Q8H [facility] Last Admin: 02/17/17 15:14 Dose: 200 mls/hr Insulin Aspart (Novolog Mix 70/30 (70/30 Units/Ml)) 20 units SC BID [facility] Last Admin: 02/17/17 17:54 Dose: 20 units Insulin Aspart (Novolog) 0 unit SC ACHS [facility] PRN Reason: Protocol Last Admin: 02/17/17 21:55 Dose: 2 unit Insulin Detemir (Levemir) 30 unit SC [facility] Last Admin: 02/17/17 21:55 Dose: 30 unit Loperamide HCl (Imodium) 2 mg PO Q6 PRN PRN Reason: Diarrhea Last Admin: 02/13/17 18:59 Dose: 2 mg Midodrine (Proamatine) 2.5 mg PO BID [facility] Last Admin: 02/17/17 17:55 Dose: 2.5 mg Rosuvastatin Calcium (Crestor) 5 mg PO [facility] Last Admin: 02/17/17 21:54 Dose: 5 mg Sucralfate (Carafate Oral Susp) 1 gm PO ACHS [facility] Last Admin: 02/17/17 21:54 Dose: 1 gm - Labs Labs: 02/17/17 08:24 02/17/17 08:24 PT 12.9 SECONDS (9.7-12.2) H 02/17/17 08:24 INR 1.1 02/17/17 08:24 APTT 30 SECONDS (21-34) 02/17/17 08:24 - Constitutional Appears: No Acute Distress - Head Exam Head Exam: ATRAUMATIC, NORMAL INSPECTION, NORMOCEPHALIC - Eye Exam Eye Exam: EOMI, Normal appearance, PERRL Pupil Exam: NORMAL ACCOMODATION, PERRL - Respiratory Exam Respiratory Exam: Clear to Ausculation Bilateral, NORMAL BREATHING PATTERN - Cardiovascular Exam Cardiovascular Exam: REGULAR RHYTHM, +S1, +S2 - GI/Abdominal Exam GI & Abdominal Exam: Soft, Normal Bowel Sounds. absent: Tenderness - Neurological Exam Neurological Exam: Alert, Awake, CN II-XII Intact, Normal Gait, Oriented x3 - Psychiatric Exam Psychiatric exam: Normal Affect, Normal Mood - Skin Skin Exam: Normal Color Assessment and Plan (1) Hydronephrosis determined by ultrasound Status: Acute (2) Obstructive uropathy Status: Acute (3) Pyelonephritis Status: Acute (4) Dehydration Status: Acute (5) Diabetes Status: Chronic
[2017-02-18] MEDS: (Novolog) Insulin Aspart, Recombinant 100 u/ml 10 ml vial SC SCH ×4 (08:33→22:51)
[2017-02-18] MEDS: Sucralfate 1 gm/10 ml Oral Susp UD PO SCH ×4 (08:39→22:50)
[2017-02-18] MEDS: Enoxaparin 30 mg Syringe SC SCH (10:08)
[2017-02-18] MEDS: (Novolog Mix 70/30) Insulin Aspart/Insulin Aspar 100 units/ml SC SCH ×2 (10:09→18:13)
[2017-02-18] MEDS ORDERED: Propofol 10 mg/ml Inj (20 ML) ONE (15:24)
[2017-02-18] MEDS ORDERED: Iohexol 240 (50 ml) ONE (15:27)
[2017-02-18] MEDS ORDERED: cefTRIAXone IV 1 gm in Dextros 50 ML IVPB ONE (15:27)
[2017-02-18] MEDS ORDERED: Lactated Ringer's 1,000 ML IV ONE ×2 (15:30)
[2017-02-18] MEDS ORDERED: Sodium Chloride 0.9% 1,000 ML IV ONE ×2 (16:17→17:30)
[2017-02-18] MEDS ORDERED: HYDROmorphone 0.5 mg/0.5 ml ISec IVP PRN (16:24)
--- NOTE | 2017-02-18 17:05 | RAD ---
PROCEDURE: Intraoperative Fluoroscopy. HISTORY: CYSTOGRAM FINDINGS: Fluoroscopic assistance was provided for cystoscopy. Please refer to fluoroscopic time (continuous mode) utilized during the procedure: 3.4 seconds.
--- NOTE | 2017-02-18 17:07 | RAD ---
HISTORY: CYSTOGRAM COMPARISON: No prior. FINDINGS: BOWEL: Normal. No obstruction. No free air. BONES: Normal. OTHER FINDINGS: None. IMPRESSION: No significant or acute findings to account for/ related to the clinical presentation.
[2017-02-18] MEDS ORDERED: Piperacillin/Tazobact 3.375 GM in Sodium Chloride 100 ML IVPB SCH (18:00)
--- NOTE | 2017-02-18 21:24 | CP.PCM.CON ---
History of Present Illness - History of Present Illness History of Present Illness: 46 year old was admitted to [place] for a mos with weakness, DKA, debility, renal failure, now with hwmaturia, cr 1.7 persistant sinus tach, saturating well , hydrate, observe, check echo and tsh, no fever or leukocytosis, co2 25, no shortness of breath, cough or pain. After hydration and heart rate improved to about 100 Review of Systems - Review of Systems Systems not reviewed;Unavailable: Unstable Vital Signs - Constitutional Constitutional: Anorexia, Weakness - EENT Eyes: Exophthalmos. absent: Discharge Ears: absent: Ear Discharge Nose/Mouth/Throat: absent: Epistaxis - Cardiovascular Cardiovascular: absent: Acrocyanosis, Chest Pain, Diaphoresis, Dyspnea on Exertion, Palpitations, Syncope - Respiratory Respiratory: absent: Cough, Dyspnea, Hemoptysis - Gastrointestinal Gastrointestinal: absent: Abdominal Pain, Diarrhea, Hematochezia, Vomiting - Genitourinary Genitourinary: absent: Change in Urinary Stream Past Patient History - Infectious Disease Hx of Infectious Diseases: None - Past Medical History & Family History Past Medical History?: Yes - Past Social History Smoking Status: Never Smoked - CARDIAC Hx Hypercholesterolemia: Yes Hx Hypertension: Yes - PULMONARY Hx Respiratory Disorders: No - NEUROLOGICAL Hx Seizures: Yes - HEENT Hx HEENT Problems: No - RENAL Hx Chronic Kidney Disease: No - ENDOCRINE/METABOLIC Hx Diabetes Mellitus Type 1: Yes - HEMATOLOGICAL/ONCOLOGICAL Hx Human Immunodeficiency Virus (HIV): No - INTEGUMENTARY Hx Dermatological Problems: No - MUSCULOSKELETAL/RHEUMATOLOGICAL Hx Fractures: Yes (left shoulder) - GASTROINTESTINAL Hx Clostridium Difficile: Yes Hx Diarrhea: Yes - GENITOURINARY/GYNECOLOGICAL Hx Genitourinary Disorders: No - PSYCHIATRIC Hx Substance Use: No - SURGICAL HISTORY Hx Surgeries: No - ANESTHESIA Hx Anesthesia: No Meds Allergies/Adverse Reactions: Allergies Allergy/AdvReac Type Severity Reaction Status Date / Time No Known Allergies Allergy Verified 01/16/17 18:01 - Medications Medications: Current Medications Acetaminophen (Tylenol 325mg Tab) 650 mg PO Q6 PRN PRN Reason: Fever >100.4 F Bisacodyl (Dulcolax) 10 mg [place] DAILY PRN PRN Reason: Constipation Enoxaparin Sodium (Lovenox) 30 mg SC DAILY [facility] Last Admin: 02/18/17 10:08 Dose: Not Given Ferrous Sulfate (Feosol) 325 mg PO DAILY [facility] Last Admin: 02/18/17 10:08 Dose: Not Given Fluconazole (Diflucan) 100 mg PO DAILY [facility] Ceftriaxone Sodium 1 gm/ (Sodium Chloride) 100 mls @ 100 mls/hr IVPB Q12H [facility] Last Admin: 02/18/17 21:02 Dose: 100 mls/hr Sodium Chloride (Sodium Chloride 0.9%) 1,000 mls @ 100 mls/hr IV .Q10H [facility] Insulin Aspart (Novolog) 0 unit SC [facility] PRN Reason: Protocol Last Admin: 02/18/17 18:17 Dose: 4 unit Insulin Aspart (Novolog Mix 70/30 (70/30 Units/Ml)) 20 units SC TID [facility] Last Admin: 02/18/17 18:13 Dose: 20 units Insulin Detemir (Levemir) 30 unit SC [facility] Last Admin: 02/17/17 21:55 Dose: 30 unit Loperamide HCl (Imodium) 2 mg PO Q6 PRN PRN Reason: Diarrhea Last Admin: 02/13/17 18:59 Dose: 2 mg Midodrine (Proamatine) 2.5 mg PO BID [facility] Last Admin: 02/18/17 18:13 Dose: 2.5 mg Rosuvastatin Calcium (Crestor) 5 mg PO [facility] Last Admin: 02/17/17 21:54 Dose: 5 mg Sucralfate (Carafate Oral Susp) 1 gm PO [facility] Last Admin: 02/18/17 18:12 Dose: 1 gm Physical Exam - Constitutional Appears: Non-toxic - Head Exam Head Exam: ATRAUMATIC - Eye Exam Eye Exam: EOMI - ENT Exam ENT Exam: Mucous Membranes Moist - Neck Exam Neck exam: Negative for: Lymphadenopathy, Thyromegaly - Respiratory Exam Respiratory Exam: Clear to Auscultation Bilateral. absent: Rales - Cardiovascular Exam Cardiovascular Exam: REGULAR RHYTHM, Systolic Murmur - GI/Abdominal Exam GI & Abdominal Exam: Normal Bowel Sounds. absent: Organomegaly - Rectal Exam Rectal Exam: Deferred - Extremities Exam Extremities exam: Positive for: normal capillary refill. Negative for: calf tenderness - Neurological Exam Neurological exam: Alert, Oriented x3 - Psychiatric Exam Psychiatric exam: Anxious - Skin Skin Exam: Dry Results - Vital Signs Recent Vital Signs: Last Vital Signs Temp 98.3 F 02/18/17 17:50 Pulse 114 H 02/18/17 17:50 Resp 16 02/18/17 17:50 BP 108/81 02/18/17 17:50 Pulse Ox 100 02/18/17 17:50 - Labs Result Diagrams: 02/17/17 08:24 02/17/17 08:24 Labs: Laboratory Results - last 24 hr 02/17/17 02/18/17 02/18/17 21:09 02:35 07:41 POC Glucose (mg/dL) 346 H 402 H* 347 H 02/18/17 02/18/17 11:15 17:27 POC Glucose (mg/dL) 282 H 234 H Assessment & Plan (1) Arrhythmia, sinus node Status: Acute Comment: Usually secondary, no pain or fever, improved with hydration, TSH is negative (normal), follow-up with echo (2) Acute renal failure (ARF) Status: Acute Comment: Diabetes and dehydration (3) Dehydration Status: Acute Comment: Was hydrated (4) Diabetes mellitus type 2 in nonobese Status: Chronic
[2017-02-18] MEDS: Sodium Chloride 0.9% 1,000 ML IV SCH (22:00)
[2017-02-18] MEDS: Insulin Detemir 100 units/ml Vial (Levemir) SC SCH (22:51)
--- NOTE | 2017-02-18 23:10 | CP.PCM.PN ---
Subjective - Date & Time of Evaluation Date of Evaluation: 02/18/17 Time of Evaluation: 19:00 - Subjective Subjective: 46 year old was admitted to [place] for a mos with weakness, DKA, debility, renal failure, now with hwmaturia, cr 1.7 persistant sinus tach, saturating well , hydrate, observe, check echo and tsh, no fever or leukocytosis, co2 25, no shortness of breath, cough or pain. After hydration and heart rate improved to about 100 Objective - Vital Signs/Intake and Output Vital Signs (last 24 hours): Temp Pulse Resp BP Pulse Ox 98.3 F 114 H 16 108/81 100 02/18/17 17:50 02/18/17 17:50 02/18/17 17:50 02/18/17 17:50 02/18/17 17:50 Intake and Output: 02/18/17 02/19/17 18:59 06:59 Output Total 200 Balance -200 - Medications Medications: Current Medications Acetaminophen (Tylenol 325mg Tab) 650 mg PO Q6 PRN PRN Reason: Fever >100.4 F Bisacodyl (Dulcolax) 10 mg [place] DAILY PRN PRN Reason: Constipation Enoxaparin Sodium (Lovenox) 30 mg SC DAILY [facility] Last Admin: 02/18/17 10:08 Dose: Not Given Ferrous Sulfate (Feosol) 325 mg PO DAILY [facility] Last Admin: 02/18/17 10:08 Dose: Not Given Fluconazole (Diflucan) 100 mg PO DAILY [facility] Ceftriaxone Sodium 1 gm/ (Sodium Chloride) 100 mls @ 100 mls/hr IVPB Q12H [facility] Last Admin: 02/18/17 21:02 Dose: 100 mls/hr Sodium Chloride (Sodium Chloride 0.9%) 1,000 mls @ 100 mls/hr IV .Q10H [facility] Last Admin: 02/18/17 22:00 Dose: 100 mls/hr Insulin Aspart (Novolog) 0 unit SC ACHS [facility] PRN Reason: Protocol Last Admin: 02/18/17 22:51 Dose: 2 unit Insulin Aspart (Novolog Mix 70/30 (70/30 Units/Ml)) 20 units SC TID [facility] Last Admin: 02/18/17 18:13 Dose: 20 units Insulin Detemir (Levemir) 30 unit SC HS [facility] Last Admin: 02/18/17 22:51 Dose: 30 unit Loperamide HCl (Imodium) 2 mg PO Q6 PRN PRN Reason: Diarrhea Last Admin: 02/13/17 18:59 Dose: 2 mg Midodrine (Proamatine) 2.5 mg PO BID [facility] Last Admin: 02/18/17 18:13 Dose: 2.5 mg Rosuvastatin Calcium (Crestor) 5 mg PO HS [facility] Last Admin: 02/18/17 22:50 Dose: 5 mg Sucralfate (Carafate Oral Susp) 1 gm PO ACHS [facility] Last Admin: 02/18/17 22:50 Dose: 1 gm - Labs Labs: 02/17/17 08:24 02/17/17 08:24 PT 12.9 SECONDS (9.7-12.2) H 02/17/17 08:24 INR 1.1 02/17/17 08:24 APTT 30 SECONDS (21-34) 02/17/17 08:24 - Constitutional Appears: No Acute Distress - Head Exam Head Exam: ATRAUMATIC, NORMAL INSPECTION, NORMOCEPHALIC - Eye Exam Eye Exam: EOMI, Normal appearance, PERRL Pupil Exam: NORMAL ACCOMODATION, PERRL - Cardiovascular Exam Cardiovascular Exam: REGULAR RHYTHM, +S1, +S2 - GI/Abdominal Exam GI & Abdominal Exam: Soft, Normal Bowel Sounds. absent: Tenderness - Rectal Exam Rectal Exam: Deferred - Neurological Exam Neurological Exam: Alert, Awake, CN II-XII Intact, Normal Gait, Oriented x3 - Psychiatric Exam Psychiatric exam: Normal Affect, Normal Mood - Skin Skin Exam: Dry, Intact, Normal Color, Warm Assessment and Plan (1) Hydronephrosis determined by ultrasound Status: Acute (2) Obstructive uropathy Status: Acute (3) Pyelonephritis Status: Acute (4) Dehydration Status: Acute (5) Diabetes Status: Chronic
[2017-02-18 23:42] VITALS: RESP 20
[2017-02-19] MEDS ORDERED: (Novolin R) Insulin Human Regular 100 units/ml vial SC ONE (02:45)
--- NOTE | 2017-02-19 07:17 | PCM.URO ---
Urology Progress Note - Subjective Hematuria: Yes (leave bardales) - Objective Lab Results Last 24 Hours: Laboratory Results - last 24 hr 02/18/17 02/18/17 02/18/17 07:41 11:15 17:27 POC Glucose (mg/dL) 347 H 282 H 234 H 02/18/17 02/19/17 21:17 01:48 POC Glucose (mg/dL) 337 H 423 H* Intake & Output: Intake & Output 02/18/17 02/19/17 02/19/17 18:59 06:59 18:59 Intake Total 1600 Output Total 200 1750 Balance -200 -150 Intake: Intake, IV Amount 800 Right Forearm 800 Oral 800 Output: Urine 200 1750 Urethral (Bardales) 1750 Other: # Voids Condom 2 # Bowel Movements 1 Vital Signs: Vital Signs - 24 hr 02/18/17 02/18/17 02/18/17 08:15 13:47 16:17 Temperature 97.7 F 98.4 F Pulse Rate 100 H 89 98 H Respiratory 20 18 Rate Blood Pressure 126/83 116/73 118/89 O2 Sat by Pulse 99 99 100 Oximetry 02/18/17 02/18/17 02/18/17 16:33 16:48 17:03 Temperature Pulse Rate 104 H 113 H 112 H Respiratory 15 16 16 Rate Blood Pressure 116/84 121/89 113/89 O2 Sat by Pulse 100 100 100 Oximetry 02/18/17 02/18/17 02/18/17 17:18 17:32 17:50 Temperature 98.3 F Pulse Rate 113 H 116 H 114 H Respiratory 15 14 16 Rate Blood Pressure 115/87 114/83 108/81 O2 Sat by Pulse 100 100 100 Oximetry 02/18/17 23:37 Temperature 97.8 F Pulse Rate 101 H Respiratory 20 Rate Blood Pressure 112/79 O2 Sat by Pulse 99 Oximetry
[2017-02-19] MEDS: Sucralfate 1 gm/10 ml Oral Susp UD PO SCH ×4 (07:30→21:56)
[2017-02-19] MEDS: (Novolog) Insulin Aspart, Recombinant 100 u/ml 10 ml vial SC SCH ×4 (07:30→21:57)
[2017-02-19] MEDS: Sodium Chloride 0.9% 1,000 ML IV SCH ×2 (07:35→17:35)
[2017-02-19 07:53] LABS: URINE BILIRUBIN NEGATIVE (NEGATIVE); URINE BLOOD NEGATIVE (NEGATIVE); URINE CLARITY Clear (Clear); URINE COLOR Colorless (YELLOW); URINE GLUCOSE (UA) NORMAL (Normal); URINE LEUKOCYTE ESTERASE NEG Leu/uL (Negative); URINE NITRATE NEGATIVE (NEGATIVE); URINE PROTEIN NEGATIVE (NEGATIVE); URINE UROBILINOGEN NORMAL mg/dL (0.2-1.0)
[2017-02-19] MEDS: Enoxaparin 30 mg Syringe SC SCH (09:31)
[2017-02-19] MEDS: (Novolog Mix 70/30) Insulin Aspart/Insulin Aspar 100 units/ml SC SCH ×3 (10:00→18:00)
--- NOTE | 2017-02-19 12:25 | CP.PCM.PN ---
Subjective - Date & Time of Evaluation Date of Evaluation: 02/19/17 Time of Evaluation: 11:00 - Subjective Subjective: Improved heart rate to about 100 after IV fluid, comfortable in bed no fever and no pain, TSH 1.9 within normal range no hyperthyroidism, follow-up with echocardiogram. Needs ambulation over unlikely PE clinically Objective - Vital Signs/Intake and Output Vital Signs (last 24 hours): Temp Pulse Resp BP Pulse Ox 98.2 F 106 H 20 118/80 97 02/19/17 08:00 02/19/17 08:00 02/19/17 08:00 02/19/17 08:00 02/19/17 08:00 Intake and Output: 02/19/17 02/19/17 06:59 18:59 Intake Total 1600 Output Total 1750 Balance -150 - Medications Medications: Current Medications Acetaminophen (Tylenol 325mg Tab) 650 mg PO Q6 PRN PRN Reason: Fever >100.4 F Bisacodyl (Dulcolax) 10 mg [place] DAILY PRN PRN Reason: Constipation Ferrous Sulfate (Feosol) 325 mg PO DAILY [facility] Last Admin: 02/19/17 09:31 Dose: 325 mg Fluconazole (Diflucan) 100 mg PO DAILY [facility] Last Admin: 02/19/17 09:31 Dose: 100 mg Ceftriaxone Sodium 1 gm/ (Sodium Chloride) 100 mls @ 100 mls/hr IVPB Q12H [facility] Last Admin: 02/19/17 06:00 Dose: 100 mls/hr Sodium Chloride (Sodium Chloride 0.9%) 1,000 mls @ 100 mls/hr IV .Q10H [facility] Last Admin: 02/19/17 07:35 Dose: 100 mls/hr Insulin Aspart (Novolog) 0 unit SC ACHS [facility] PRN Reason: Protocol Last Admin: 02/19/17 11:30 Dose: 2 unit Insulin Aspart (Novolog Mix 70/30 (70/30 Units/Ml)) 20 units SC TID [facility] Last Admin: 02/19/17 10:00 Dose: 20 units Insulin Detemir (Levemir) 30 unit SC HS [facility] Last Admin: 02/18/17 22:51 Dose: 30 unit Loperamide HCl (Imodium) 2 mg PO Q6 PRN PRN Reason: Diarrhea Last Admin: 02/13/17 18:59 Dose: 2 mg Midodrine (Proamatine) 2.5 mg PO BID [facility] Last Admin: 02/19/17 09:31 Dose: 2.5 mg Rosuvastatin Calcium (Crestor) 5 mg PO HS [facility] Last Admin: 02/18/17 22:50 Dose: 5 mg Sucralfate (Carafate Oral Susp) 1 gm PO ACHS [facility] Last Admin: 02/19/17 11:30 Dose: 1 gm - Labs Labs: 02/17/17 08:24 02/17/17 08:24 PT 12.9 SECONDS (9.7-12.2) H 02/17/17 08:24 INR 1.1 02/17/17 08:24 APTT 30 SECONDS (21-34) 02/17/17 08:24 - Constitutional Appears: Non-toxic - Head Exam Head Exam: ATRAUMATIC - Eye Exam Eye Exam: EOMI - ENT Exam ENT Exam: Mucous Membranes Moist - Neck Exam Neck Exam: absent: Lymphadenopathy, Thyromegaly - Respiratory Exam Respiratory Exam: Clear to Ausculation Bilateral. absent: Rales - Cardiovascular Exam Cardiovascular Exam: REGULAR RHYTHM, Murmur - GI/Abdominal Exam GI & Abdominal Exam: Normal Bowel Sounds. absent: Organomegaly - Rectal Exam Rectal Exam: Deferred - Extremities Exam Extremities Exam: Normal Capillary Refill. absent: Calf Tenderness - Neurological Exam Neurological Exam: Alert, Oriented x3 - Psychiatric Exam Psychiatric exam: Normal Mood - Skin Skin Exam: Dry Assessment and Plan (1) Arrhythmia, sinus node Status: Acute (2) Acute renal failure (ARF) Status: Acute (3) Dehydration Status: Acute (4) Diabetes mellitus type 2 in nonobese Status: Chronic
[2017-02-19] MEDS: Insulin Detemir 100 units/ml Vial (Levemir) SC SCH (22:00)
[2017-02-20] MEDS: Sodium Chloride 0.9% 1,000 ML IV SCH ×2 (03:30→05:01)
[2017-02-20] MEDS: (Novolog) Insulin Aspart, Recombinant 100 u/ml 10 ml vial SC SCH ×3 (08:16→17:59)
[2017-02-20] MEDS: Sucralfate 1 gm/10 ml Oral Susp UD PO SCH ×3 (08:17→16:30)
--- NOTE | 2017-02-20 10:09 | PCM.URO ---
Urology Progress Note - Subjective Hematuria: Yes (The patient has voiding dysfunction and urinary retention) Other: I discussed options with the patient the patient removed his Roth catheter yesterday by himself reportedly he said it just fell out but taking the garbage the balloon is down and it's working so think he deflated and he said it was causing a lot of discomfort anyway anyway at this point I discussed constipation he did not allow catheter to be reinserted. I explained to the patient his father is here to that my concern is long-term he is in retention we did the cystoscopy see the note from yesterday from 02/18--. He has other issues going on in that he is very dizzy he can't walk. Using the hospital from urology standpoint is in retention we did the cystoscopy we found the patient noticed to be in retention had to have cloudy urine but at this point he is refusing a Roth catheter to be reinserted so the plan is at this point I would repeat an ultrasound of his kidney and his bladder and then I will encourage him to allow Roth catheter I also may request a second opinion from another urologist we'll see how this is going - Objective Lab Results Last 24 Hours: Laboratory Results - last 24 hr 02/19/17 02/19/17 02/19/17 11:17 11:57 16:26 POC Glucose (mg/dL) 173 H 239 H TSH 3rd Generation 1.94 02/19/17 02/20/17 21:27 07:41 POC Glucose (mg/dL) 177 H 167 H TSH 3rd Generation Intake & Output: Intake & Output 02/19/17 02/20/17 02/20/17 18:59 06:59 18:59 Intake Total 1200 1140 1040 Output Total 1050 1200 950 Balance 150 -60 90 Intake: Intake, IV Amount 800 800 800 Right Forearm 800 800 800 Oral 400 340 240 Output: Urine 1050 1200 950 Urethral (Roth) 1050 1200 Urine, Voided 950 Other: # Bowel Movements 0 Vital Signs: Vital Signs - 24 hr 02/19/17 02/19/17 02/19/17 12:26 16:00 23:28 Temperature 98.1 F 97.8 F Pulse Rate 95 H 98 H 93 H Respiratory 20 20 Rate Blood Pressure 110/72 115/82 135/84 O2 Sat by Pulse 97 100 97 Oximetry 02/20/17 08:34 Temperature 97.1 F L Pulse Rate 102 H Respiratory 20 Rate Blood Pressure 136/90 O2 Sat by Pulse 99 Oximetry
[2017-02-20] MEDS: (Novolog Mix 70/30) Insulin Aspart/Insulin Aspar 100 units/ml SC SCH ×3 (10:55→18:02)
[2017-02-20 11:29] LABS: BASO # 0.1 K/uL (0.0-0.2); BASO % 1.6 % (0.0-2.0); EOS # 0.5 K/uL (0.0-0.7); HEMOGLOBIN 10.5 g/dL (12.0-18.0); LYMPH % 23.1 % (20.0-40.0); MEAN CELL VOLUME 86.1 fL (80.0-94.0); MEAN CORPUSCULAR HEMOGLOBIN 28.1 pg (27.0-31.0); MEAN CORPUSCULAR HGB CONC 32.7 g/dL (33.0-37.0); MEAN PLATELET VOLUME 7.6 fL (7.2-11.7); MONO # 0.5 K/uL (0.0-0.8); MONO % 5.3 % (0.0-10.0); NEUT # 5.6 K/uL (1.8-7.0); RBC 3.73 Mil/uL (4.40-5.90); RED CELL DISTRIBUTION WIDTH 14.7 % (11.5-14.5); WHITE BLOOD COUNT 8.7 K/uL (4.8-10.8)
[2017-02-20 11:42] LABS: BLOOD UREA NITROGEN 20 mg/dL (9-20); GFR AFRICAN-AMERICAN > 60; GFR NON-AFRICAN AMERICAN 60
[2017-02-20 11:43] LABS: CALCIUM 9.5 mg/dl (8.6-10.4)
--- NOTE | 2017-02-20 12:19 | CP.PCM.PN ---
Subjective - Date & Time of Evaluation Date of Evaluation: 02/20/17 Time of Evaluation: 12:00 - Subjective Subjective: Comfortable in bed, for physical therapy, advanced debility. Heart rate improved to the 90s, echocardiogram with normal left ventricular contractility, and no significant valvular disease, no pericardial disease. Continue observation and treatment for diabetes. No need for further management from a cardiac viewpoint Objective - Vital Signs/Intake and Output Vital Signs (last 24 hours): Temp Pulse Resp BP Pulse Ox 97.1 F L 102 H 20 136/90 99 02/20/17 08:34 02/20/17 08:34 02/20/17 08:34 02/20/17 08:34 02/20/17 08:34 Intake and Output: 02/20/17 02/20/17 06:59 18:59 Intake Total 1140 1040 Output Total 1200 950 Balance -60 90 - Medications Medications: Current Medications Acetaminophen (Tylenol 325mg Tab) 650 mg PO Q6 PRN PRN Reason: Fever >100.4 F Bisacodyl (Dulcolax) 10 mg [place] DAILY PRN PRN Reason: Constipation Ferrous Sulfate (Feosol) 325 mg PO DAILY [facility] Last Admin: 02/20/17 09:32 Dose: 325 mg Fluconazole (Diflucan) 100 mg PO DAILY [facility] Last Admin: 02/20/17 09:32 Dose: 100 mg Ceftriaxone Sodium 1 gm/ (Sodium Chloride) 100 mls @ 100 mls/hr IVPB Q12H [facility] Last Admin: 02/20/17 07:00 Dose: 100 mls/hr Sodium Chloride (Sodium Chloride 0.9%) 1,000 mls @ 100 mls/hr IV .Q10H [facility] Last Admin: 02/20/17 05:01 Dose: 100 mls/hr Insulin Aspart (Novolog) 0 unit SC ACHS [facility] PRN Reason: Protocol Last Admin: 02/20/17 11:38 Dose: 3 unit Insulin Aspart (Novolog Mix 70/30 (70/30 Units/Ml)) 20 units SC TID [facility] Last Admin: 02/20/17 10:55 Dose: Not Given Insulin Detemir (Levemir) 30 unit SC HS [facility] Last Admin: 02/19/17 22:00 Dose: 30 unit Loperamide HCl (Imodium) 2 mg PO Q6 PRN PRN Reason: Diarrhea Last Admin: 02/13/17 18:59 Dose: 2 mg Midodrine (Proamatine) 2.5 mg PO BID [facility] Last Admin: 02/20/17 09:32 Dose: 2.5 mg Rosuvastatin Calcium (Crestor) 5 mg PO HS [facility] Last Admin: 02/19/17 21:59 Dose: 5 mg Sucralfate (Carafate Oral Susp) 1 gm PO ACHS [facility] Last Admin: 02/20/17 11:32 Dose: 1 gm - Labs Labs: 02/20/17 11:22 02/20/17 11:22 PT 12.9 SECONDS (9.7-12.2) H 02/17/17 08:24 INR 1.1 02/17/17 08:24 APTT 30 SECONDS (21-34) 02/17/17 08:24 - Constitutional Appears: Non-toxic - Head Exam Head Exam: ATRAUMATIC - Eye Exam Eye Exam: EOMI - ENT Exam ENT Exam: Mucous Membranes Moist - Neck Exam Neck Exam: absent: Lymphadenopathy, Thyromegaly - Respiratory Exam Respiratory Exam: Clear to Ausculation Bilateral. absent: Rales - Cardiovascular Exam Cardiovascular Exam: REGULAR RHYTHM, Murmur - GI/Abdominal Exam GI & Abdominal Exam: Normal Bowel Sounds. absent: Organomegaly - Rectal Exam Rectal Exam: Deferred - Extremities Exam Extremities Exam: Normal Capillary Refill. absent: Calf Tenderness - Neurological Exam Neurological Exam: Alert, Oriented x3 - Psychiatric Exam Psychiatric exam: Depressed - Skin Skin Exam: Dry Assessment and Plan (1) Arrhythmia, sinus node Status: Acute (2) Acute renal failure (ARF) Status: Acute (3) Dehydration Status: Acute (4) Diabetes mellitus type 2 in nonobese Status: Chronic
--- NOTE | 2017-02-20 15:25 | CARD ---
APPROVED REPORT EXAM: Two-dimensional and M-mode echocardiogram with Doppler and color Doppler. Other Information Quality : GoodRhythm : NSR INDICATION arf RISK FACTORS Hypertension Hyperlipidemia Diabetes 2D DIMENSIONS IVSd1.1 (0.7-1.1cm)Aortic Root (2D)3.0 (2.0-3.7cm) LVDd3.3 (3.9-5.9cm)PWd1.3 (0.7-1.1cm) LVDs2.3 (2.5-4.0cm)FS (%) 31.7 % LVEF (%)60.9 (>50%) M-Mode DIMENSIONS RVDd1.43 (2.1-3.2cm)Left Atrium (MM)2.05 (2.5-4.0cm) Aortic Root3.03 (2.2-3.7cm)Aortic Cusp Exc.2.02 (1.5-2.0cm) Mitral Valve MV E Fyzdgxdo70.2cm/sMV A Wbocsghd88.0cm/sE/A ratio0.6 TDI E/Lateral E'0.0E/Medial E'0.0 Tricuspid Valve TR Peak [id number]/sTR Peak Gr.[id number] LEFT VENTRICLE The left ventricle is normal size. There is normal left ventricular wall thickness. The left ventricular function is normal. The left ventricular ejection fraction is within the normal range. There is normal LV segmental wall motion. The left ventricular diastolic function is normal. RIGHT VENTRICLE The right ventricle is normal size. The right ventricular systolic function is normal. ATRIA The left atrium size is normal. The right atrium size is normal. AORTIC VALVE The aortic valve is normal in structure. No aortic regurgitation is present. MITRAL VALVE The mitral valve is normal in structure. There is no mitral valve regurgitation noted. TRICUSPID VALVE The tricuspid valve is normal in structure. There is trace tricuspid regurgitation. PULMONIC VALVE The pulmonary valve is normal in structure. GREAT VESSELS The aortic root is normal in size. The IVC is normal in size and collapses >50% with inspiration. PERICARDIAL EFFUSION There is no pericardial effusion. <Conclusion> Normal biventricular function. No valvular abnormality. No pericardial effusion.
--- NOTE | 2017-02-20 15:47 | CP.PCM.PN ---
Subjective - Date & Time of Evaluation Date of Evaluation: 02/20/17 Time of Evaluation: 11:00 - Subjective Subjective: Pt seen and examined today, denies any chest pain, sob , abdominal pain, fever , flank pain, dysuria. N/V/D, dysuria,or hematuria, c/o dizziness upon walking s/p cystoscopy Saturday and f/c out since yesterday, no voiding problem or hematuria noted a febrile Objective - Vital Signs/Intake and Output Vital Signs (last 24 hours): Temp Pulse Resp BP Pulse Ox 97.1 F L 102 H 20 136/90 99 02/20/17 08:34 02/20/17 08:34 02/20/17 08:34 02/20/17 08:34 02/20/17 08:34 Intake and Output: 02/20/17 02/20/17 06:59 18:59 Intake Total 1140 4000 Output Total 1200 1252 Balance -60 2748 - Medications Medications: Current Medications Acetaminophen (Tylenol 325mg Tab) 650 mg PO Q6 PRN PRN Reason: Fever >100.4 F Bisacodyl (Dulcolax) 10 mg [place] DAILY PRN PRN Reason: Constipation Ferrous Sulfate (Feosol) 325 mg PO DAILY [facility] Last Admin: 02/20/17 09:32 Dose: 325 mg Fluconazole (Diflucan) 100 mg PO DAILY [facility] Last Admin: 02/20/17 09:32 Dose: 100 mg Ceftriaxone Sodium 1 gm/ (Sodium Chloride) 100 mls @ 100 mls/hr IVPB Q12H [facility] Last Admin: 02/20/17 07:00 Dose: 100 mls/hr Sodium Chloride (Sodium Chloride 0.9%) 1,000 mls @ 100 mls/hr IV .Q10H [facility] Last Admin: 02/20/17 05:01 Dose: 100 mls/hr Insulin Aspart (Novolog) 0 unit SC ACHS [facility] PRN Reason: Protocol Last Admin: 02/20/17 11:38 Dose: 3 unit Insulin Aspart (Novolog Mix 70/30 (70/30 Units/Ml)) 20 units SC TID [facility] Last Admin: 02/20/17 10:55 Dose: Not Given Insulin Detemir (Levemir) 30 unit SC HS [facility] Last Admin: 02/19/17 22:00 Dose: 30 unit Loperamide HCl (Imodium) 2 mg PO Q6 PRN PRN Reason: Diarrhea Last Admin: 02/13/17 18:59 Dose: 2 mg Midodrine (Proamatine) 2.5 mg PO BID [facility] Last Admin: 02/20/17 09:32 Dose: 2.5 mg Rosuvastatin Calcium (Crestor) 5 mg PO HS [facility] Last Admin: 02/19/17 21:59 Dose: 5 mg Sucralfate (Carafate Oral Susp) 1 gm PO ACHS [facility] Last Admin: 02/20/17 11:32 Dose: 1 gm - Labs Labs: 02/20/17 11:22 02/20/17 11:22 PT 12.9 SECONDS (9.7-12.2) H 02/17/17 08:24 INR 1.1 02/17/17 08:24 APTT 30 SECONDS (21-34) 02/17/17 08:24 - Constitutional Appears: Well, No Acute Distress - Respiratory Exam Respiratory Exam: Clear to Ausculation Bilateral, NORMAL BREATHING PATTERN - Cardiovascular Exam Cardiovascular Exam: Tachycardia, +S1, +S2 - GI/Abdominal Exam GI & Abdominal Exam: Soft, Normal Bowel Sounds - Neurological Exam Neurological Exam: Alert, Awake, Oriented x3 Assessment and Plan - Assessment and Plan (Free Text) Assessment: 46 yr old male admitted from rehab with heamaturia/ Pyelonephritis/, Acute renal failure (ARF), Leukocytosis, Fever s/p cystoscopy Saturday urine culture - + seratia and sensitive to ceftriaxione
--- NOTE | 2017-02-20 16:05 | US ---
PROCEDURE: Ultrasound of the Kidneys HISTORY: hydronephrosis COMPARISON: Prior renal and urinary bladder ultrasound examination 02/15/2017. TECHNIQUE: Sonogram of the kidneys. FINDINGS: RIGHT KIDNEY: Measures: 12.4 cm cm. Normal in size, contour and echogenicity. Mild right hydronephrosis appears unchanged. LEFT KIDNEY: Measures: 10.6 cm. Normal in size, contour and echogenicity. Limited hydronephrosis is stable. OTHER FINDINGS: Layering debris/soft tissue at the urinary bladder base is significantly less apparent currently. Mural thickening at the dependent portion of bladder is not completely excluded though appearing minimal at this time. . IMPRESSION: Mild right and limited left hydronephrosis appears unchanged. Prior debris or other soft tissue the urinary bladder base is not currently identified. Mural thickening at the dependent portion of bladder is not completely excluded though appearing minimal at this time. Send
[2017-02-20 16:40] VITALS: BP 157/106; PULSE 91; TEMP 97.9; O2SAT 100
--- NOTE | 2017-02-20 22:30 | CP.PCM.DIS ---
Provider - Provider Date of Admission: 02/11/17 15:52 Attending physician: Jerad Orellana MD Time Spent in preparation of Discharge (in minutes): 45 Diagnosis - Discharge Diagnosis (1) Hydronephrosis determined by ultrasound Status: Acute (2) Obstructive uropathy Status: Acute (3) Pyelonephritis Status: Acute (4) Dehydration Status: Acute (5) Diabetes Status: Chronic Hospital Course - Lab Results Lab Results: Micro Results 02/18/17 Unknown Urine,Clean Catch Urine Culture - Final Yeast Species 02/13/17 14:30 Blood Blood Culture - Final NO GROWTH AFTER 5 DAYS 02/13/17 14:30 Blood Gram Stain - Final TEST NOT PERFORMED 02/13/17 14:10 Blood Blood Culture - Final NO GROWTH AFTER 5 DAYS 02/13/17 14:10 Blood Gram Stain - Final TEST NOT PERFORMED 02/11/17 Unknown Urine Urine Culture - Final Serratia Marcescens Most Recent Lab Values WBC 8.7 K/uL (4.8-10.8) 02/20/17 11:22 RBC 3.73 Mil/uL (4.40-5.90) L 02/20/17 11:22 Hgb 10.5 g/dL (12.0-18.0) L 02/20/17 11:22 Hct 32.1 % (35.0-51.0) L 02/20/17 11:22 MCV 86.1 fL (80.0-94.0) 02/20/17 11:22 MCH 28.1 pg (27.0-31.0) 02/20/17 11:22 MCHC 32.7 g/dL (33.0-37.0) L 02/20/17 11:22 RDW 14.7 % (11.5-14.5) H 02/20/17 11:22 Plt Count 327 K/uL (130-400) 02/20/17 11:22 MPV 7.6 fL (7.2-11.7) 02/20/17 11:22 Neut % (Auto) 64.0 % (50.0-75.0) 02/20/17 11:22 Lymph % (Auto) 23.1 % (20.0-40.0) 02/20/17 11:22 Irion % (Auto) 5.3 % (0.0-10.0) 02/20/17 11:22 Eos % (Auto) 6.0 % (0.0-4.0) H 02/20/17 11:22 Baso % (Auto) 1.6 % (0.0-2.0) 02/20/17 11:22 Neut # 5.6 K/uL (1.8-7.0) 02/20/17 11:22 Lymph # 2.0 K/uL (1.0-4.3) 02/20/17 11:22 Irion # 0.5 K/uL (0.0-0.8) 02/20/17 11:22 Eos # 0.5 K/uL (0.0-0.7) 02/20/17 11:22 Baso # 0.1 K/uL (0.0-0.2) 02/20/17 11:22 PT 12.9 SECONDS (9.7-12.2) H 02/17/17 08:24 INR 1.1 02/17/17 08:24 APTT 30 SECONDS (21-34) 02/17/17 08:24 pO2 17 mm/Hg (30-55) L 02/11/17 14:28 VBG pH 7.36 (7.32-7.43) 02/11/17 14:28 VBG pCO2 47 mmHg (40-60) 02/11/17 14:28 VBG HCO3 23.3 mmol/L 02/11/17 14:28 VBG Total CO2 28.0 mmol/L (22-28) 02/11/17 14:28 VBG O2 Sat (Calc) 27.8 % (40-65) L 02/11/17 14:28 VBG Base Excess 0.6 mmol/L (0.0-2.0) 02/11/17 14:28 VBG Potassium 4.7 mmol/L (3.6-5.2) 02/11/17 14:28 Sodium 139.0 mmol/l (132-148) 02/11/17 14:28 Chloride 108.0 mmol/L (98-107) H 02/11/17 14:28 Glucose 174 mg/dl (75-110) H 02/11/17 14:28 Lactate 1.4 mmol/L (0.7-2.1) 02/11/17 14:28 Sodium 138 mmol/L (132-148) 02/20/17 11:22 Potassium 4.2 mmol/L (3.6-5.2) 02/20/17 11:22 Chloride 104 mmol/L (98-107) 02/20/17 11:22 Carbon Dioxide 25 mmol/L (22-30) 02/20/17 11:22 Anion Gap 14 (10-20) 02/20/17 11:22 BUN 20 mg/dL (9-20) 02/20/17 11:22 Creatinine 1.3 MG/DL (0.8-1.5) 02/20/17 11:22 Est GFR ( Amer) > 60 02/20/17 11:22 Est GFR (Non-Af Amer) 60 02/20/17 11:22 POC Glucose (mg/dL) 386 mg/dL (65-110) H 02/20/17 16:27 Random Glucose 269 mg/dL (75-110) H 02/20/17 11:22 Calcium 9.5 mg/dl (8.6-10.4) 02/20/17 11:22 Total Bilirubin 0.4 mg/dL (0.2-1.3) 02/15/17 07:31 AST 43 U/L (17-59) 02/15/17 07:31 ALT 56 U/L (21-72) 02/15/17 07:31 Alkaline Phosphatase 126 U/L (38-126) 02/15/17 07:31 Total Protein 7.6 g/dL (6.3-8.3) 02/15/17 07:31 Albumin 3.2 g/dL (3.5-5.0) L 02/15/17 07:31 Globulin 4.4 gm/dL (2.2-3.9) H 02/15/17 07:31 Albumin/Globulin Ratio 0.7 (1.0-2.1) L 02/15/17 07:31 Prostate Specific Ag 0.344 ng/mL (0.00-4.0) 02/15/17 07:31 TSH 3rd Generation 1.94 mIU/L (0.46-4.68) 02/19/17 11:17 Venous Blood Potassium 4.7 mmol/L (3.6-5.2) 02/11/17 14:28 Urine Color Colorless (YELLOW) 02/19/17 07:30 Urine Clarity Clear (Clear) 02/19/17 07:30 Urine pH 6.0 (5.0-8.0) 02/19/17 07:30 Ur Specific Herman 1.000 (1.003-1.030) L 02/19/17 07:30 Urine Protein Negative mg/dL (NEGATIVE) 02/19/17 07:30 Urine Glucose (UA) Normal mg/dL (Normal) 02/19/17 07:30 Urine Ketones Negative mg/dL (NEGATIVE) 02/19/17 07:30 Urine Blood Negative (NEGATIVE) 02/19/17 07:30 Urine Nitrate Negative (NEGATIVE) 02/19/17 07:30 Urine Bilirubin Negative (NEGATIVE) 02/19/17 07:30 Urine Urobilinogen Normal mg/dL (0.2-1.0) 02/19/17 07:30 Ur Leukocyte Esterase Neg Chay/uL (Negative) 02/19/17 07:30 Urine WBC (Auto) < 1 /hpf (0-5) 02/19/17 07:30 Urine RBC (Auto) < 1 /hpf (0-3) 02/19/17 07:30 Urine WBC Clumps (Auto) Many /hpf (NONE) H 02/14/17 04:34 Urine Bacteria Mod (<OCC) H 02/14/17 04:34 Urine Yeast (Budding) Many /hpf (NEGATIVE) H 02/14/17 04:34 C. difficile Ag & Toxin Negative (NEGATIVE) 02/11/17 06:00 - Hospital Course Hospital Course: 46 yr old male admitted from rehab with heamaturia/ Pyelonephritis/, Acute renal failure (ARF), Leukocytosis, Fever s/p cystoscopy Saturday urine culture - + seratia and sensitive to ceftriaxione Discharge Exam - Head Exam Head Exam: ATRAUMATIC Discharge Plan - Discharge Medications Prescriptions: Cephalexin [cephalexin] 500 mg PO Q12 7 Days - Follow Up Plan Condition: STABLE Disposition: REHAB FACILITY/REHAB UNIT Additional Instructions: Please continue medication as per Med. Rec. Patient needs to f/u with Dr. Rosina Schroeder office in 1-2 weeks (s/p cystoscopy) call and make appointment
--- NOTE | 2017-03-19 09:11 | PN ---
UROLOGY PROGRESS NOTE DATE: 02/19/2017 SUBJECTIVE: See the history and physical, consult and operative report. Rounding on the patient today. He has removed the Roth catheter. He said that it fell out, but he also said it hurts his penis and he does not want the catheter. The past medical and surgical history is otherwise unremarkable. PHYSICAL EXAMINATION: No other changes. His physical exam remains essentially unchanged. ASSESSMENT: The diagnosis is urinary retention, renal failure, hydronephrosis and voiding dysfunction. PLAN: 1. I spent a long time with the patient, explained to the patient the importance of a Roth catheter and our recommendations. 2. our recommendation is to maintain the Roth catheter and our concerns are for renal failure and dialysis, etc. 3. I discussed with him other actions including second opinion. 4. I explained that our best recommendation is for catheterization. 5, I also explained to the patient the idea of self catheterization. 6. Multiple discussions. 7. We will continue to follow along. Glen Almaguer MD
--- NOTE | 2017-03-19 10:27 | OP ---
UROLOGY OPERATIVE REPORT PROCEDURE DATE: PREOPERATIVE DIAGNOSES: Urinary retention, renal failure, and voiding dysfunction. POSTOPERATIVE DIAGNOSES: Urinary retention, renal failure, and voiding dysfunction. PROCEDURE: Cystoscopy, a cystogram, and insertion of Roth catheter. COMPLICATIONS: There were no complications. OPERATIVE FINDINGS: Normal anterior urethra. No strictures on reviewing it and it is moderately visually occlusive. The patient is in retention. INDICATIONS: See history and physical and consultation, multiple progress note from the chart. The patient is a very pleasant gentleman who has underlying diabetes. He has urinary retention and renal failure, who is here for the above procedure. See the addendum at the end because I would like to mention, the urology recommendation is to maintenance of Roth catheter. This is a very pleasant gentleman who is in the hospital for various reasons. Urology consulted for urinary retention, renal failure and hydronephrosis. DESCRIPTION OF PROCEDURE: After obtaining informed consent, the patient was placed on the table. Routine monitors were placed. Time-out was called to confirm the patient's positioning. We cystoscope via the urethra. Anterior urethra was normal. No strictures on reviewing it and it is moderately visually occlusive. limits. The bladder was inspected carefully. There is no bladder tumors or stones identified. At this point, we inserted a Roth catheter to perform the cystogram. Films were submitted for the radiologist read as well, but essentially no major abnormalities were noted. We left the Roth catheter indwelling. The patient tolerated this well without complications. ADDENDUM: The urology recommendation will be to maintain the Roth catheter and see if the kidney will improve. I explain to the patient in detail our recommendations for now. The patient may require further testing and evaluation. Glen Almaguer MD
== END 2017-02-20 19:45 | DRG 690 ==
LOC: C.ER 13:04 → C.9E 15:52 → C.5T 22:13 → C.3T 02-14 22:09
PROVIDERS: ADMIT Internal Medicine; ATTEND Internal Medicine
PROC: BT0BZZZ Plain Radiography of Bladder and Urethra (ICD-10-PCS; 2017-02-18)
PROC: 0T9B70Z Drainage of Bladder with Drainage Device, Via Natural or Artificial Opening (ICD-10-PCS; 2017-02-18)
PROC: 0TJB8ZZ Inspection of Bladder, Via Natural or Artificial Opening Endoscopic (ICD-10-PCS; principal; 2017-02-18 14:45)
DX: N10 Acute pyelonephritis (principal); N17.9 Acute kidney failure, unspecified; N13.30 Unspecified hydronephrosis; B96.89 Other specified bacterial agents as the cause of diseases classified elsewhere; E86.0 Dehydration; R31.9 Hematuria, unspecified; E11.9 Type 2 diabetes mellitus without complications; I10 Essential (primary) hypertension; E78.00 Pure hypercholesterolemia, unspecified; Z79.4 Long term (current) use of insulin